=== PATIENT | female | born 1945 | race Caucasian/White ===

== ENCOUNTER → 2024-03-17 | Outpatient (CLI) | payer OTHER, SELFPAY ==
--- NOTE | 2024-03-17 15:22 | XR_ITS ---
Examination: PA lateral chest 2 views TECHNIQUE: Upright PA lateral chest 2 views Exam date and time: March 17, 2024 1532 hours Comparison January 23, 2023 INDICATIONS: Coughing beginning 6 months ago. FINDINGS: Mild prominence left ventricle Linear scarring in the right middle lobe No interval pneumonia or pulmonary edema Right shoulder arthroplasty IMPRESSION: No interval pneumonia or pulmonary edema
[2024-03-17 16:16] LABS: Basophils % (Auto) 0 % (0-2.5); Eosinophils # (Auto) 0.1 Thou/mm3 (0.0-0.5); Eosinophils % (Auto) 1 % (0-10); Hematocrit 36.8 % (36.0-46.0); Hemoglobin 11.6 g/dL (12.0-16.0); Immature Granulocytes % (Auto) 0 % (0-0); Immature Granulocytes Auto 0.02 Thou/mm3 (0.00-0.00); Lymphocytes # (Auto) 2.2 Thou/mm3 (1.0-4.8); Lymphocytes % (Auto) 29 % (10-50); Mean Corpuscular HGB Conc 31.5 g/dl (31.0-37.0); Mean Corpuscular Hemoglobin 30.5 pg (25.0-35.0); Mean Corpuscular Volume 97 fL (80-100); Monocytes # (Auto) 0.4 Thou/mm3 (0.0-0.8); Monocytes % (Auto) 5 % (0-12); Neutrophils # (Auto) 4.8 Thou/mm3 (1.8-7.7); Neutrophils % (Auto) 64 % (37-80); Nucleated Red Blood Cell % 0 /100 WBC (0); Platelet Count 298 Thou/mm3 (140-440); RDW Standard Deviation 49.3 fL (36.4-46.3); White Blood Count 7.5 Thou/mm3 (3.6-11.0)
[2024-03-17 16:24] LABS: Glucose Estimated Average 114 mg/dL (80-131); Hemoglobin A1C 5.6 % Hgb (4.8-6.0)
[2024-03-17 16:50] LABS: Alanine Aminotransferase 16 U/L (10-49); Albumin, Serum 4.1 gm/dL (3.4-4.8); Albumin/Globulin Ratio 1.9 (1.2-2.2); Alkaline Phosphatase 105 U/L (46-116); Anion Gap 8 (7-16); Aspartate Amino Transferase 18 U/L (0-34); BUN/Creatinine Ratio 24 Ratio (12-20); Bilirubin,Total 0.2 mg/dL (0.3-1.2); Blood Urea Nitrogen 22 mg/dL (9-23); Calcium 8.7 mg/dL (8.3-10.6); Calcium (Corrected) 8.7 mg/dL (8.5-10.1); Carbon Dioxide 26.4 mMol/L (20.0-31.0); Cardiac Risk Estimate 3.2 RATIO (3.7-5.6); Chloride 106 mMol/L (98-107); Cholesterol 174 mg/dL (132-200); Creatinine (Component) 0.9 mg/dL (0.6-1.3); Globulin 2.2 gm/dL (2.3-3.5); Glucose 91 mg/dL (74-106); HDL Cholesterol 55 mg/dL (40-60); LDL Cholesterol,Calculated 97 mg/dL (0-130); Osmolality,Calculated 282 (275-295); Potassium 5.2 mMol/L (3.4-5.1); Sodium 140 mMol/L (136-145); Total Protein 6.3 gm/dL (5.7-8.2); Triglycerides 110 mg/dL (30-150); eGFR > 60 See Note
== END | disposition home or self-care (01) ==
LOC: CDIM 15:19 → COPL 15:38
PROVIDERS: Referring Provider Student in an Organized Health Care Education/Training Program; Visit Provider Radiology Diagnostic Radiology
DX: R05.9 Cough, unspecified (principal); I10 Essential (primary) hypertension; E78.5 Hyperlipidemia, unspecified
CPT/HCPCS: 36415; 71046; 80053; 80061; 83036; 85025

== ENCOUNTER → 2024-05-24 | Outpatient (CLI) | payer OTHER, SELFPAY ==
[2024-05-24 13:24] LABS: Potassium 4.8 mMol/L (3.4-5.1)
== END | disposition home or self-care (01) ==
PROVIDERS: PCP Family Medicine; Referring Provider Internal Medicine; Visit Provider Internal Medicine
DX: I10 Essential (primary) hypertension (principal)
CPT/HCPCS: 36415; 84132

== ENCOUNTER 2024-09-20 20:40 | Observation (INO) | payer OTHER, SELFPAY ==
[2024-09-20 20:43] VITALS: BMI 21.6
[2024-09-20 20:44] VITALS: BP 117/57; PULSE 51; RESP 19; TEMP 37; O2SAT 95
--- NOTE | 2024-09-20 20:49 | PD.EDNEURO ---
Neuro Symptoms Deficit-RME/HPI General Chief Complaint: General Adult/Misc Complain Stated Complaint: WEAKNESS FORGETFULL Time Seen by Provider: 09/20/24 20:53 Arrival date/time: 09/20/24 20:40 RME / HPI RME / HPI Narrative: This section includes all my notes and documentations, including HPI, PE, and ED course. Albaro Chin MD HPI: 79yo female with a history of CVA, HTN here with possible stroke. reports unusual observation starting 10 hours ago. He reports possible confusion and some speech impairment. She didn't know where she was and didn't recognize family members. Possible slurred speech, he reports very slow speech. Uncertain about aphasia. No obvious right sided weakness or left-sided weakness. No obvious ataxia. No other complaints. ROS: Unable to obtain from the patient due to current clinical condition. Physical Exam: General: Alert and oriented X 2. Eyes: Conjunctivae and lids clear. EOMI. PERRL. ENT: No nasal congestion. Neck: Supple. No carotid bruit. No JVD. Heart: RRR. Lungs: No respiratory distress. Good air movement. No rhonchi, wheezing, rales. Abdomen: Soft and nontender. Legs: No clubbing, cyanosis, edema. Skin: Warm and dry. Neuro: Alert and oriented X 2. Cranial Nerves II-XII grossly intact. No peripheral motor deficits. Musculoskeletal: All major joints and bones are not tender with no limited ROM. I reviewed all diagnostic test results. My interpretation of the EKG is sinus rhythm with no acute ST?T changes. My interpretation of the chest x-ray is NAD. My review of the CT head report is NAD. My review of the CTA head neck report is: NAD. Blood test unremarkable. UA showed positive leukocyte Estrace, 15 RBC, 34 WBC, and 3+ bacteria. UDS positive for marijuana. At this point, diagnoses include stroke-like symptoms and UTI. Treatment here included IV fluid, Atorvastatin, ASA, and Rocephin. I discussed the case with our teleneurologist. About the presentation and exam and diagnostics and treatments here. Recommended admission for further workup. I discussed the case with our hospitalist. About the presentation and exam and diagnostics and treatments here. And need of further care in the hospital. Will accept the patient. Albaro Chin MD Related Data Home Medications ?Medication ?Instructions ?Recorded ?Confirmed furosemide 20 mg tablet 20 mg PO QDAY 10/09/18 05/23/21 fluoxetine 40 mg capsule 40 mg PO QDAY 05/23/21 05/23/21 lisinopril 40 mg tablet 40 mg PO QDAY 05/23/21 05/23/21 metoprolol succinate 25 mg 25 mg PO QDAY 05/23/21 05/23/21 tablet,extended release 24 hr Allergies Allergy/AdvReac Type Severity Reaction Status Date / Time succinylcholine (From Allergy Severe STOPPED Verified 09/20/24 20:51 Anectine) BREATHING Review of Systems Review of Systems Systems Reviewed: All systems reviewed, normal except as documented Past Medical History Past Medical History NEUROLOGIC: Positive Cerebrovascular Accident (2001); Negative Neurological Disorders or Seizures CARDIAC: Positive Cardiac Disorders and Hypertension; Negative Congestive Heart Failure RESPIRATORY: Negative Chronic Obstructive Pulmonary Disease (COPD) GASTROINTESTINAL: Negative Gastrointestinal Disorders GENITOURINARY: Negative Genitourinary Disorders or Renal Disease REPRODUCTIVE: Negative Pelvic Inflammatory Disease MUSCULOSKELETAL: Positive Musculoskeletal Disorders, Arthritis (HANDS) and Carpal Tunnel Syndrome (bilateral) ENT: Positive Cataracts (BOTH EYES); Negative Glaucoma ENDOCRINE: Negative Endocrine Disorders, Diabetes Mellitus Type 1 or Diabetes Mellitus Type 2 HEMATOLOGIC: Negative Blood Disorders PSYCHO/SOCIAL: 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 Course Course Course Narrative: 2048: Stroke alert initiated. Quality Measures Suspected type of Stroke: Unknown at this time Tenecteplase given: Reason(s) TPA not given: Outside the time window not given stroke Orders Category Date Time Status Bedside Blood Glucose NOW Care 09/20/24 20:53 Active Bedside COVID-19 Antigen Test NOW Care 09/20/24 20:55 Active Bedside Influenza A&B Antigen Test NOW Care 09/20/24 20:55 Completed COVID-19 Screening Questionnaire NOW Care 09/20/24 23:14 Active Home Care Administrator NOW Care 09/20/24 20:53 Active Continuous Pulse Oximetry NOW Care 09/20/24 20:53 Completed Decision to Admit X1 Care 09/20/24 23:14 Active EKG (ED ONLY) *Do not use* NOW Care 09/20/24 20:53 Completed Insert IV NOW Care 09/20/24 20:53 Active NIH Stroke Scale now Care 09/20/24 20:53 Active NPO NOW Care 09/20/24 20:53 Active Nurse Swallow Screen x1 Care 09/20/24 20:53 Active Straight [In and Out Catheter] X1 Care 09/20/24 20:55 Active Consult to Neurology / Tele-Neurology Routine Cons 09/20/24 20:[address] angio stroke protocol Stat Exams 09/20/24 20:[address] stroke protocol Stat Exams 09/20/24 20:53 Completed EKG (ED Only) Stat Exams 09/20/24 20:53 Draft XR chest 1V portable Stat Exams 09/20/24 20:53 Completed Alcohol, Blood Medical Stat Lab 09/20/24 21:44 Completed B-Type Natriuretic Peptide Stat Lab 09/20/24 21:44 Completed Bilirubin,Direct Stat Lab 09/20/24 21:44 Completed Blood Culture (Lab) Stat Lab 09/20/24 21:55 Received CBC Stat Lab 09/20/24 21:44 Completed CRP [C-Reactive Protein] Stat Lab 09/20/24 21:44 Completed Comprehensive Metabolic Panel Stat Lab 09/20/24 21:44 Completed Drug Screen,Urine Stat Lab 09/20/24 22:19 Completed ESR [Sed Rate (ESR)] Stat Lab 09/20/24 21:44 Completed Free T4 (Free Thyroxine) Stat Lab 09/20/24 21:44 Completed Lactate (Lactic Acid) Stat Lab 09/20/24 21:44 Completed Magnesium Stat Lab 09/20/24 21:44 Completed Partial Thromboplastin Time Stat Lab 09/20/24 21:44 Completed Procalcitonin Stat Lab 09/20/24 21:44 Completed Prothrombin Time with INR Stat Lab 09/20/24 21:44 Completed TSH [Thyroid Stimulating Hormone] Stat Lab 09/20/24 21:44 Completed Troponin I Stat Lab 09/20/24 21:44 Completed Urinalysis Stat Lab 09/20/24 22:19 Completed Urine Culture Stat Lab 09/20/24 20:53 Received Aspirin [Ecotrin] Med 09/21/24 09:00 Active 81 mg PO QDAY Aspirin [Ecotrin] Med 09/20/24 22:39 Discontinued 81 mg PO X1 ONE Atorvastatin Calcium [Lipitor] Med 09/21/24 21:00 Active 80 mg PO HS Atorvastatin Calcium [Lipitor] Med 09/20/24 22:45 Discontinued 80 mg PO X1 ONE Sodium Chloride 0.9% 1000 ml [Ns] 1,000 ml Med 09/20/24 21:00 Active IV Q10H EKG (RT) Stat RT 09/20/24 22:39 Ordered Oxygen Delivery NOW RT 09/20/24 20:53 Active Vital Signs Vital signs: Vital Signs Temperature 98.6 F 09/20/24 20:44 Pulse Rate 51 L 09/20/24 20:44 Respiratory Rate 19 09/20/24 20:44 Blood Pressure 117/57 L 09/20/24 20:44 Pulse Oximetry (%) 95 09/20/24 20:44 Oxygen Delivery Method Room Air 09/20/24 20:44 Neuro Symptoms / Deficit MDM Narrative MDM Narrative:: 79yo female with a history of CVA, HTN here with possible stroke. reports unusual observation starting 10 hours ago. He reports possible confusion and some speech impairment. She didn't know where she was and didn't recognize family members. Possible slurred speech, he reports very slow speech. Uncertain about aphasia. No obvious right sided weakness or left-sided weakness. No obvious ataxia. No other complaints. Patient data External records reviewed:: [facility] previous records (Per chart review, patient has no previous ED visits or admissions to this facility.) Clinical information provided by:: patient and spouse Social determinants that could affect healthcare access:: none Patient has the following chronic illnesses:: CVA, HTN How is presenting disease/condition affected by chronic disease/condition?: uneffected by Evaluation data The following diagnostics were reviewed and interpreted by me:: lab results, radiology exam(s) and EKG tracing(s) (My interpretation of the EKG is: Sinus rhythm versus atrial fibrillation (47 bpm) with nonspecific ST-T changes. Albaro Chin MD) Lab and/or radiology exams considered but not ordered:: none Interpretation Summary: I reviewed all diagnostic test results. My interpretation of the EKG is sinus rhythm with no acute ST?T changes. My interpretation of the chest x-ray is NAD. My review of the CT head report is NAD. My review of the CTA head neck report is: NAD. Blood test unremarkable. UA showed positive leukocyte Estrace, 15 RBC, 34 WBC, and 3+ bacteria. UDS positive for marijuana. Medications / Prescriptions Medications or Prescriptions considered but not ordered:: none Medication administrations:: Medication Administration History Acetaminophen (Acetaminophen 325 Mg Tablet) 650 mg PO Q6H PRN PRN Reason: Fever >100.4 or pain 1-3 Stop: 10/20/24 23:31 Hydrocodone Bitart/Acetaminophen (Hydrocodone/Apap 5/325 Tablet) 1 tab PO Q4HR PRN PRN Reason: PAIN SCALE 4-10(Mod-Sev Stop: 09/25/24 23:31 Aspirin (Aspirin Ec 81 Mg Tabec) 81 mg PO QDAY ONELIA Stop: 10/21/24 08:59 Atorvastatin Calcium (Atorvastatin Calcium 20 Mg Tablet) 80 mg PO HS ONELIA Stop: 10/21/24 20:59 Docusate Sodium (Docusate Sod 100 Mg Capsule) 100 mg PO QDAY PRN; Protocol PRN Reason: CONSTIPATION Stop: 10/20/24 23:31 Heparin Sodium (Porcine) (Heparin Sod Inj 5000 Unit/Ml Vial) 5,000 unit SC Q12HR ONELIA Stop: 10/05/24 08:59 Sodium Chloride (Ns) 1,000 mls @ 100 mls/hr IV Q10H ONELIA Stop: 10/20/24 20:59 Last Admin: 09/20/24 21:44 Dose: 100 mls/hr Documented By: TACOS Ceftriaxone Sodium/Dextrose (Rocephin/D5w 1gm Iv Premix) 1 gm in 50 mls @ 100 mls/hr IV QDAY ONELIA Stop: 09/27/24 23:40 Last Infusion: 09/21/24 00:30 Dose: Infused Documented By: Admin: 09/20/24 23:59 Dose: 100 mls/hr Documented By: RONALD Ondansetron HCl (Ondansetron Inj 2 Mg/Ml Inj 2 Ml) 4 mg IVP Q6H PRN; Protocol PRN Reason: NAUSEA OR VOMITING Stop: 10/20/24 23:31 Sennosides (Senna Tablet) 1 tab PO QDAY PRN; Protocol PRN Reason: constipation Stop: 10/20/24 23:31 Discontinued Medications Aspirin (Aspirin Ec 81 Mg Tabec) 81 mg PO X1 ONE Stop: 09/20/24 22:40 Last Admin: 09/20/24 23:10 Dose: 81 mg Documented By: CG Atorvastatin Calcium (Atorvastatin Calcium 20 Mg Tablet) 80 mg PO X1 ONE Stop: 09/20/24 22:46 Last Admin: 09/20/24 23:10 Dose: 80 mg Documented By: CG Levothyroxine Sodium (Levothyroxine Sodium 25 Mcg Tablet) 12.5 mcg PO ACBR ONELIA Stop: 10/21/24 05:59 Potassium Chloride (Potassium Chloride 20 Meq Tabcr) 20 meq PO X1 ONE Stop: 09/21/24 00:43 Last Admin: 09/21/24 01:57 Dose: 20 meq Documented By: RONALD Treatment here included IV fluid, Atorvastatin, ASA, and Rocephin. Consultations Consultation(s) initiated? (list below): Yes Consultation #1 (Physician, Specialty, Details): I discussed the case with our teleneurologist. About the presentation and exam and diagnostics and treatments here. Recommended admission for further workup. Consultation #2 (Physician, Specialty, Details): I discussed the case with our hospitalist. About the presentation and exam and diagnostics and treatments here. And need of further care in the hospital. Will accept the patient. Diagnosis Neuro Differential Diagnosis: subarachnoid hemorrhage, cerebrovascular accident and transient cerebral ischemia Most likely diagnosis given after review of the tests above:: Stroke-like symptoms and UTI Admission Indicated Admission indicated?: indicated Explain why admission is indicated or not indicated:: Stroke-like symptoms Admission Request Was there a request for admission?: Yes Admission Attestation Admission request attestation: Discussed case with Hospitalist service regarding admission. Discussed patients ED course, exam findings, labs, and radiology results. The Hospitalist [agrees] to accept the patient for admission. Disposition Plan Disposition Plan: Admit Critical Care Time Critical Care Time Critical Care Time: Yes Total Critical Care Time (min.): 36 Attestation: Due to a high probability of clinically significant, life threatening deterioration, the patient required my highest level of preparedness to intervene emergently and I personally spent this critical care time directly and personally managing the patient. This critical care time included obtaining a history; examining the patient; ordering and review of studies; arranging urgent treatment with development of a management plan; evaluation of patient's response to treatment; frequent reassessment; and discussions with family and other providers. It was exclusive of separately billable procedures and treating other patients and teaching time. Albaro Chin MD Discharge Plan Plan Patient Disposition: Admit Acute Care w/in Hospital Problem List Clinical Impression: Stroke-like symptoms
--- NOTE | 2024-09-20 20:53 | XR_ITS ---
Examination: AP chest single view TECHNIQUE: AP portable upright chest single view Date and time: July 21, [id number] hours Comparison March 17, 2024 INDICATIONS: Stroke alert today with chest pain FINDINGS: Mild prominence left ventricle. No pneumonia or pulmonary edema. Prominent osteopenia. Reverse right shoulder arthroplasty. IMPRESSION: No pneumonia or pulmonary edema
--- NOTE | 2024-09-20 20:53 | XR_ITS ---
Examination: CT brain head without contrast. 2-D sagittal coronal reconstructions Date and time of exam:September 20, 2024, 2058 hours INDICATIONS: Stroke alert, onset focal neurologic deficit, altered mental status, history CVA with old cerebellar infarcts on brain MRI July 31, 2021 CTDI: vol (mGy):46.6 DLP: (mGycm):912 Technique: Multiple CT axial sections of the brain have been obtained, 5 mm slice thickness. Contrast has not been administered. 2-D sagittal, coronal reconstructions have been obtained Low dose protocols were performed. One or more of the following dose reduction techniques were used; automated exposure control, adjustment of the mA and/or KV according to patient size, use of iterative reconstruction technique. Findings: No significant ventricular enlargement. Intra-axial or extra-axial hemorrhage density is not seen. No mass effect or midline shift Basal cisterns are not remarkable. Fourth ventricle is midline. Cranial vault intact. Large old left cerebellar infarct Impression: Negative for acute hemorrhage, mass effect or midline shift
--- NOTE | 2024-09-20 20:53 | XR_ITS ---
Examination: CTA carotids with intravenous contrast CTA brain, head with intravenous contrast. 2-D sagittal, coronal reconstructions. 3-D reconstructions. Exam date and time: September 20, 2024, 2106 hours INDICATIONS: Stroke alert, onset focal neurologic deficit today CTDI: vol (mGy) 11.5 DLP: (mGycm) 41.8 Technique: Multiple CTA axial brain, head carotid images post intravenous contrast injection 100 cc, [id number]. 2-D sagittal, coronal reconstructions. 3-D reconstructions, 3-D post processing including vascular maximum intensity projection images. Low dose protocols were performed. One or more of the following dose reduction techniques were used; automated exposure control, adjustment of the mA and/or KV according to patient size, use of iterative reconstruction technique. Findings: Small bilateral subcentimeter thyroid nodules No significant common carotid carotid bifurcation or internal carotid artery stenoses Dominant right vertebral artery No appreciable filling of the proximal left vertebral artery which is atretic in its mid and distal portion Basilar artery is intact although diffuse 50% stenosis in its midportion 80% plus stenosis P1 segment right posterior cerebral artery and 70% stenosis P2 segment right posterior cerebral artery M1 segments middle cerebral arteries and trifurcation vessels intact as well as anterior cerebral arteries IMPRESSION: No appreciable filling of the proximal left vertebral artery, recommend carotid vertebral Doppler sonography to assess for retrograde flow in the left vertebral artery No significant carotid stenoses 50% diffuse narrowing in the basilar artery. 80% plus stenosis P1 segment right posterior cerebral artery, 70% stenosis P2 segment right posterior cerebral artery No cerebral large vessel arterial occlusions
--- NOTE | 2024-09-20 20:53 | EKG_ITS ---
[facility] Test Date: 2024-09-20 Pat Name: JULISA WILLS Department: Room: - Gender: Female Sheep Shearer: : 1945 Requested By: Albaro Thakkar Order Number: [id number] Reading MD: Albaro Thakkar Measurements Intervals [place] Rate: 47 P: 67 CT: 212 QRS: 42 QRSD: 91 T: 47 QT: 481 QTc: 430 Interpretive Statements SINUS BRADYCARDIA WITH FIRST DEGREE AV BLOCK WITH OCCASIONAL SUPRAVENTRICULAR PREMATURE COMPLEXES POSSIBLE ANTERIOR MYOCARDIAL INFARCTION , PROBABLY OLD [30 ms Q WAVE IN V3/V4, OR R < 0.2 mV IN V4] No previous ECG available for comparison /[id number]/[id number]
[2024-09-20 21:24] VITALS: BP 108/41; PULSE 43; PULSE 46; RESP 15; RESP 93; TEMP 36.1; O2SAT 97
[2024-09-20 21:25] VITALS: PULSE 46; RESP 19; RESP 97
[2024-09-20] MEDS: SODIUM CHLORIDE 0.9% 1000 ML 1,000 ML 100 ML IV (21:44)
--- NOTE | 2024-09-20 21:47 | ESCONSULT_ITS ---
Tele Neuro Consultation Consultation Date 09/20/24 Most Recent Vital Signs Last Vital Signs Temp 97.0 F 09/20/24 21:24 Pulse 46 L 09/20/24 21:25 Resp 19 09/20/24 21:25 BP 108/41 L 09/20/24 21:24 Pulse Ox 97 09/20/24 21:24 O2 Del Method Room Air 09/20/24 20:44 O2 Flow Rate 2 09/20/24 21:24 Consultation Narrative [facility] Tele[facility]urology Consult Services Patient Name:???Cindi Hess Date of :???1945 Identification Number:??? Date of Service:???09/20/2024 20:51:07 Diagnosis:?R51.83 - Other fatigue Impression: ?79 year old with fatigue, confusion, forgetfulness, slowness of speech/movement progressively worsening since around 1pm this afternoon. Would pursue broad workup. Our recommendations are outlined below. Recommendations: ? Stroke/Telemetry Floor ? Neuro Checks (Q4) ? Bedside Swallow Eval ? DVT Prophylaxis ? IV Fluids, Normal Saline ? Head of Bed 30 Degrees ? Euglycemia and Avoid Hyperthermia (PRN Acetaminophen) ? Initiate or continue Aspirin 81 MG daily ? Antihypertensives PRN if Blood pressure is greater than 220/120 or there is a concern for End organ damage/contraindications for permissive HTN. If blood pressure is greater than 220/120 give labetalol PO or IV or Vasotec IV with a goal of 15% reduction in BP during the first 24 hours. ?MRI brain without contrast ?Routine EEG ?TTE/ECHO ?A1C, LDL, B12, TSH with T3/4, Ammonia, Tox screen, Mag, ESR, CK ?High dose statin ?Cardiac Monitoring ?Infectious workup per primary team ?Inpatient neurology FU recommended post MRI brain/EEG for further analysis Sign Out: ? Discussed with Emergency Department Provider Advanced Imaging: CTA Head and Neck Completed. LVO:No Patient is not a candidate for ERLINDA Metrics: Last Known Well: 09/20/2024 13:00:00 Dispatch Time: 09/20/2024 20:51:07 Arrival Time: 09/20/2024 20:40:00 Initial Response Time: 09/20/2024 20:52:29Symptoms: Talking and moving slower than normal since early afternoon. Initial patient interaction: 09/20/2024 21:10:19 NIHSS Assessment Completed: 09/20/2024 21:15:14Patient is not a candidate for Thrombolytic. Thrombolytic Medical Decision: 09/20/2024 21:15:15Patient was not deemed candidate for Thrombolytic because of following reasons: LKW outside 4.[address] Head: I personally reviewed all the CT images that were available to me and it showed: no evidence of bleed Primary Provider Notified of Diagnostic Impression and Management Plan on: 09/20/2024 21:24:08 History of Present Illness:Patient is a 79 year old Female. Patient was brought by private transportation with symptoms of Talking and movi ng slower than normal since early afternoon. This is a 79 year old who presents with mental status changes. Story is taken from as patient states that currently she does not feel any different than she feels at normal baseline. states that he started to realize that there was something different about patient between 12pm and 1pm this afternoon. Patient appeared to be lethargic, talking slower, appeared forgetful, and was moving slower than normal. states that he believed that patient either forgot to take her Prozac, or that patient overmedicated on pain medication. However, as time passed in the afternoon and into the evening, the problem never resolved, in fact it started to appear that it was worsening. For this reason patient presents. On exam patient is awake and alert and fully oriented. Her concentration is normal. Her 1 minute recall is abnormal, she appears to have trouble with memory at this time. She has no aphasia or dysarthria. She has no drift or numbness of an extremity. NIH was 0. On asking how patient was different from normal, states that patient is talking very slow . Patient states I feel normal but states that perhaps she is talking a little bit slower than usual. CT head showed no evidence of bleed. Past Medical History: ?Hypertension ?Stroke ?There is no history of Diabetes Mellitus ?There is no history of Atrial Fibrillation ?There is no history of Seizures Medications: No Anticoagulant use? No Antiplatelet use Reviewed EMR for current medications Allergies:? Reviewed Social History: Smoking: No Alcohol Use: No Drug Use: No Family History: There is no family history of premature cerebrovascular disease pertinent to this consultation ROS : 14 Points Review of Systems was performed and was negative except mentioned in HPI. Past Surgical History: There Is No Surgical History Contributory To Today?s Visit Examination: BP(117/57),?Pulse(51),?Blood Glucose(156) 1A: Level of Consciousness - Alert; keenly responsive?+ 0 1B: Ask Month and Age - Both Questions Right?+ 0 1C: Blink Eyes & Squeeze Hands - Performs Both Tasks?+ 0 2: Test Horizontal Extraocular Movements - Normal?+ 0 3: Test Visual Swan - No Visual Loss?+ 0 4: Test Facial Palsy (Use Grimace if Obtunded) - Normal symmetry?+ 0 5A: Test Left Arm Motor Drift - No Drift for 10 Seconds?+ 0 5B: Test Right Arm Motor Drift - No Drift for 10 Seconds?+ 0 6A: Test Left Leg Motor Drift - No Drift for 5 Seconds?+ 0 6B: Test Right Leg Motor Drift - No Drift for 5 Seconds?+ 0 7: Test Limb Ataxia (FNF/Heel-Yee) - No Ataxia?+ 0 8: Test Sensation - Normal; No sensory loss?+ 0 9: Test Language/Aphasia - Normal; No aphasia?+ 0 10: Test Dysarthria - Normal?+ 0 11: Test Extinction/Inattention - No abnormality?+ 0 NIHSS Score:?0 Pre-Morbid Modified Severance Scale:0 Points = No symptoms at all Spoke with :?Primary ED provider This consult was conducted in real time using interactive audio and video technology. Patient was informed of the technology being used for this visit and agreed to proceed. Patient located in hospital and provider located at home/office setting. Patient is being evaluated for possible acute neurologic impairment and high probability of imminent or life-threatening deterioration. I spent total of 60 minutes providing care to this patient, including time for face to face visit via telemedicine, review of medical records, imaging studies and discussion of findings with providers, the patient and/or family. Dr Ivan Zambrano [facility] For Inpatient follow-up with [facility] physician please call [facility] at . As we are not an outpatient service for any post hospital discharge needs please contact the hospital for assistance. If you have any questions for the [facility] physicians or need to reconsult for clinical or diagnostic changes please contact us via [facility] at . Signature :Radha Zambrano
[2024-09-20 22:05] LABS: Basophils # (Auto) 0.0 Thou/mm3 (0.0-0.2); Basophils % (Auto) 0 % (0-2.5); Eosinophils # (Auto) 0.1 Thou/mm3 (0.0-0.5); Eosinophils % (Auto) 1 % (0-10); Hematocrit 30.4 % (36.0-46.0); Hemoglobin 9.8 g/dL (12.0-16.0); Immature Granulocytes Auto 0.02 Thou/mm3 (0.00-0.00); Lymphocytes # (Auto) 2.0 Thou/mm3 (1.0-4.8); Lymphocytes % (Auto) 33 % (10-50); Mean Corpuscular HGB Conc 32.2 g/dl (31.0-37.0); Mean Corpuscular Hemoglobin 30.4 pg (25.0-35.0); Mean Corpuscular Volume 94 fL (80-100); Monocytes # (Auto) 0.5 Thou/mm3 (0.0-0.8); Monocytes % (Auto) 8 % (0-12); Neutrophils # (Auto) 3.5 Thou/mm3 (1.8-7.7); Neutrophils % (Auto) 58 % (37-80); Nucleated Red Blood Cell # 0.00 Thou/mm3 (0.00-0.00); Nucleated Red Blood Cell % 0 /100 WBC (0); Platelet Count 232 Thou/mm3 (140-440); RDW Standard Deviation 45.3 fL (36.4-46.3); Red Blood Count 3.22 Miln/mm3 (4.00-5.20); White Blood Count 6.1 Thou/mm3 (3.6-11.0)
[2024-09-20 22:16] LABS: B-Type Natriuretic Peptide 108 pg/mL (0-100)
[2024-09-20 22:20] LABS: INR 1.0 (0.9-1.3); Partial Thromboplastin Time 29.5 Seconds (22.0-36.0); Prothrombin Time 11.1 Seconds (9.0-12.2)
[2024-09-20 22:26] LABS: Sed Rate (ESR) 14 mm/hr (0-30)
[2024-09-20 22:31] LABS: Collection Type, Urine Clean Catch
[2024-09-20 22:40] LABS: Lactate (Lactic Acid) 1.0 mMol/L (0.4-2.0)
[2024-09-20 22:47] LABS: Amphetamine/Methamp Scrn,U Negative (Negative); Bacteria,Urine 3+; Barbiturate Screen,Urine Negative (Negative); Benzodiazepines Screen,Urine Negative (Negative); Benzoylecgonine Screen, Ur Negative (Negative); Bilirubin,Urine Negative (Negative); Blood,Urine Trace (Negative); Clarity,Urine Turbid (Clear/Hazy); Color,Urine Yellow (Lt Yel-Yel); Fentanyl Screen,Urine Negative (Negative); Glucose, Urine Negative (Negative); Hyaline Casts,Urine < 1 /hpf (0-1); Ketones,Urine Negative (Negative); Leukocyte Esterase,Urine Positive (Negative); Nitrite,Urine Positive (Negative); Opiate Screen,Urine Negative (Negative); PH,Urine 6.5 (5.0-7.0); Protein,Urine Negative (Neg - Trace); RBC,Urine 15 /hpf (0-3); Specific Gravity,Urine 1.040 (1.001-1.035); Squamous Epithelial Cell,Urine 12 /hpf (0-5); THC Screen,Urine Positive (Negative); Urobilinogen,Urine Negative mg/dL (0.0-1.0); WBC,Urine 34 /hpf (0-5)
[2024-09-20 22:47] LABS: Anion Gap 8 (7-16); BUN/Creatinine Ratio 17 Ratio (12-20); Blood Urea Nitrogen 24 mg/dL (9-23); Carbon Dioxide 25.6 mMol/L (20.0-31.0); Chloride 105 mMol/L (98-107); Creatinine (Component) 1.4 mg/dL (0.6-1.3); Potassium 3.8 mMol/L (3.4-5.1); Sodium 139 mMol/L (136-145)
[2024-09-20 22:48] LABS: Alanine Aminotransferase 8 U/L (10-49); Albumin, Serum 3.5 gm/dL (3.4-4.8); Albumin/Globulin Ratio 1.7 (1.2-2.2); Alcohol, Blood Medical < 3.0 mg/dL (0-10.0); Alkaline Phosphatase 83 U/L (46-116); Aspartate Amino Transferase 16 U/L (0-34); Bilirubin,Direct < 0.1 mg/dL (0.0-0.3); Bilirubin,Total 0.3 mg/dL (0.3-1.2); C-Reactive Protein < 0.5 mg/dL (0.0-0.9); Calcium 8.6 mg/dL (8.3-10.6); Calcium (Corrected) 9.0 mg/dL (8.5-10.1); Estimated Creatinine Clearance 28.1 mL/min (>60); Free T4 (Free Thyroxine) 0.81 ng/dL (0.89-1.76); Globulin 2.1 gm/dL (2.3-3.5); Glucose 105 mg/dL (74-106); Magnesium 2.0 mg/dL (1.6-2.6); Osmolality,Calculated 281 (275-295); Procalcitonin < 0.04 ng/ml (0.0-0.49); Thyroid Stimulating Hormone 0.60 uIU/mL (0.55-4.78); Total Protein 5.6 gm/dL (5.7-8.2); Troponin I < 0.020 ng/mL (0.0-0.045); eGFR 38 See Note
[2024-09-20] MEDS: ASPIRIN EC 81 MG TABEC PO (23:10)
[2024-09-20] MEDS: ATORVASTATIN CALCIUM 20 MG TABLET 80 MG PO (23:10)
--- NOTE | 2024-09-20 23:35 | PD.RESHP ---
Documentation for date of: 09/20/24 HPI History of Present Illness Chief complaint: Confusion, slowed speech History of present illness: 79 y/o F with PMHx significant for CVA without residual deficits, HTN, arthritis presented to ED from home with chief complaint confusion and slurred speech. Per family at bedside, patient had an episode where she did nopt seem to recognize her daughter. Patient has also been forgetful about simple things, and had slowed speech with delay in responses. Symptoms had improved by time of exam. Patient denied fatigue, fever, chills, chest pain, SOB, nausea, vomiting, dysuria, constipation. Patient noted to be bradycardic, hemodynamically stable and asymptomatic, per chart review has had bradycardia for several years. ED COURSE: Labs significant for: Hemoglobin 9.8, BUN 24, creatinine 1.4, EGFR 38. Urinalysis showing positive nitrates, positive LE, 15 RBCs, 34 WBCs, 12 epithelial cells, 3+ bacteria. U tox positive for marijuana. Imaging significant for: Chest x-ray negative. CT head negative. Head and neck CTA showing no filling of left vertebral artery, 50% narrowing basilar artery, 80% stenosis right posterior cerebral artery. No LVO. PMH: CVA, hypertension, arthritis. PSH: Bilateral knee replacement, right shoulder replacement. SH: Denies alcohol or tobacco use. Endorses nightly THC use. Allergies:?Succinylcholine Medications: Pravastatin, valsartan, Prozac Review of Systems Review of Systems Systems Reviewed: All systems reviewed, normal except as documented Past Medical History Past Medical History Comments PMH COMMENT: PMH: CVA, hypertension, arthritis. PSH: Bilateral knee replacement, right shoulder replacement. SH: Denies alcohol or tobacco use. Endorses nightly THC use. Allergies:?Succinylcholine Medications: Pravastatin, valsartan, Prozac Exam Vital Signs Temp Pulse Resp BP Pulse Ox O2 Del Method O2 Flow Rate 97.0 F 46 L 19 108/41 L 97 Room Air 2 09/20/24 21:24 09/20/24 21:25 09/20/24 21:25 09/20/24 21:24 09/20/24 21:24 09/20/24 20:44 09/20/24 21:24 Narrative Exam PE: Gen: Well-developed and well-nourished. HEENT: NCAT, PERRLA, EOMI, anicteric conjunctivae. Dry mucous membranes. CVS: normal S1 and S2. No M/R/G. Sinus bradycardia. Resp: CTA B/L. No rhonchi, rales, crackles or wheezing. Abd: soft, non-tender, non-distended. BS+ in all 4 quadrants. MSK: Good ROM in BUE & BLE. No edema or rash. Neuro: CN II-XII grossly intact. Strength 5/5 in BUE & BLE. Alert and oriented x3. Forgetfulness. Psych: appropriate mood and affect. Results: Labs 09/21/24 04:20 09/21/24 04:20 Labs: Short CBC 09/20/24 Range/Units 21:44 WBC 6.1 (3.6-11.0) Thou/mm3 Hgb 9.8 L (12.0-16.0) g/dL Hct 30.4 L (36.0-46.0) % Plt Count 232 (140-440) Thou/mm3 BMP 09/20/24 21:44 Sodium 139 Potassium 3.8 Chloride 105 Carbon Dioxide 25.6 BUN 24 H Creatinine 1.4 H Glucose 105 Calcium 8.6 Cardiac Enzymes 09/20/24 Range/Units 21:44 Troponin I < 0.020 (0.0-0.045) ng/mL Liver Function 09/20/24 Range/Units 21:44 Total Bilirubin 0.3 (0.3-1.2) mg/dL Direct Bilirubin < 0.1 (0.0-0.3) mg/dL AST 16 (0-34) U/L ALT 8 L (10-49) U/L Alkaline Phosphatase 83 (46-116) U/L Albumin 3.5 (3.4-4.8) gm/dL Urine 09/20/24 Range/Units 22:19 Urine Color Yellow (Lt Yel-Yel) Urine Clarity Turbid A (Clear/Hazy) Urine pH 6.5 (5.0-7.0) Ur Specific [place] 1.040 H (1.001-1.035) Urine Protein Negative (Neg - Trace) Urine Glucose (UA) Negative (Negative) Quality Measures Quality Measures stroke Suspected type of Stroke: Unknown at this time Tenecteplase given: Reason(s) Tenecteplase not given: Outside the time window not given Rehab services: PT evaluation ordered and Speech Language Pathology eval ordered VTE Prophylaxis: pharmaceutical Antithrombotic by day 2:: not indicated (describe) (Out of window) Statin ordered: >75 y/o moderate or high intensity dose Anticoagulation ordered for A-fib or flutter (current or hx): not indicated Advance care planning discussed with:: patient and spouse Medications Home Medications and Allergies Home Medications ?Medication ?Instructions ?Recorded ?Confirmed ?Type furosemide 20 mg tablet 20 mg PO QDAY 10/09/18 05/23/21 History fluoxetine 40 mg capsule 40 mg PO QDAY 05/23/21 05/23/21 History lisinopril 40 mg tablet 40 mg PO QDAY 05/23/21 05/23/21 History metoprolol succinate 25 mg 25 mg PO QDAY 05/23/21 05/23/21 History tablet,extended release 24 hr Allergies Allergy/AdvReac Type Severity Reaction Status Date / Time succinylcholine (From Allergy Severe STOPPED Verified 09/20/24 20:51 Anectine) BREATHING Visit Medications Acetaminophen (Acetaminophen 325 Mg Tablet) 650 mg PO Q6H PRN PRN Reason: Fever >100.4 or pain Stop: 10/20/24 23:31 Hydrocodone Bitart/Acetaminophen (Hydrocodone/Apap 5/325 Tablet) 1 tab PO Q4HR PRN PRN Reason: PAIN SCALE 4-10(Mod-Sev Stop: 09/25/24 23:31 Aspirin (Aspirin Ec 81 Mg Tabec) 81 mg PO QDAY ONELIA Stop: 10/21/24 08:59 Atorvastatin Calcium (Atorvastatin Calcium 20 Mg Tablet) 80 mg PO HS ONELIA Stop: 10/21/24 20:59 Docusate Sodium (Docusate Sod 100 Mg Capsule) 100 mg PO QDAY PRN; Protocol PRN Reason: CONSTIPATION Stop: 10/20/24 23:31 Heparin Sodium (Porcine) (Heparin Sod Inj 5000 Unit/Ml Vial) 5,000 unit SC Q12HR ONELIA Stop: 10/05/24 08:59 Sodium Chloride (Ns) 1,000 mls @ 100 mls/hr IV Q10H ONELIA Stop: 10/20/24 20:59 Last Admin: 09/20/24 21:44 Dose: 100 mls/hr Ceftriaxone Sodium/Dextrose (Rocephin/D5w 1gm Iv Premix) 1 gm in 50 mls @ 100 mls/hr IV QDAY ONELIA Stop: 09/27/24 23:40 Last Admin: 09/20/24 23:59 Dose: 100 mls/hr Ondansetron HCl (Ondansetron Inj 2 Mg/Ml Inj 2 Ml) 4 mg IVP Q6H PRN; Protocol PRN Reason: NAUSEA OR VOMITING Stop: 10/20/24 23:31 Sennosides (Senna Tablet) 1 tab PO QDAY PRN; Protocol PRN Reason: constipation Stop: 10/20/24 23:31 Discontinued Medications Aspirin (Aspirin Ec 81 Mg Tabec) 81 mg PO X1 ONE Stop: 09/20/24 22:40 Last Admin: 09/20/24 23:10 Dose: 81 mg Atorvastatin Calcium (Atorvastatin Calcium 20 Mg Tablet) 80 mg PO X1 ONE Stop: 09/20/24 22:46 Last Admin: 09/20/24 23:10 Dose: 80 mg Assessment & Plan Plan 79 y/o F with PMHx significant for CVA without residual deficits, HTN, arthritis presented to ED from home with chief complaint confusion and slurred speech, admitted for encephalopathy and stroke rule out. #Acute encephalopathy #Stroke rule out Patient presented chief complaint of confusion and slurred speech per family. Patient has history of previous CVA. CT head unremarkable, head and neck CTA showed no filling left vertebral artery, 50% narrowing basilar artery, 80% stenosis right posterior cerebral artery. On exam patient was A&Ox3, however somewhat forgetful, per family bedside this was different from patient's baseline. Teleneuro consulted, recommended admission for further stroke rule out. NIHSS 0. - Aspirin 81 mg p.o. daily - Atorvastatin 80 mg p.o. at bedtime - MRI stroke protocol pending, follow-up - Carotid doppler (in addition to CTA obtained per neuro recs) - PT/ST consulted - Every 4 hours neurochecks - Treat UTI as below - Permissive hypertension #LELA Patient presented with mild LELA, BUN 24, creatinine 1.4, EGFR 38. Baseline creatinine 0.9, baseline EGFR greater than 60. Likely prerenal. - IVF as above - Avoid nephrotoxins - Renally dose meds as needed #Bradycardia, stable, asymptomatic Patient noted to be bradycardic on exam. Hemodynamically stable. Patient denies chest pain, shortness of breath, headache, fatigue, weakness. Denies any knowledge of previous bradycardia diagnosis, however on chart review patient has had bradycardia for several years. EKG showed sinus bradycardia with first-degree AV block. - Telemonitoring - Consider cardio consult - Keep potassium above 4 magnesium above 2 - Possibly in setting of Hypothyroidism #Hypothyroidism Possibly secondary as TSH wnl May be a cause of patient's bradycardia. F/U repeat TSH/fT4 Start patient on low dose Levothyroxine if remains low Consider further labs and imaging as warranted. #UTI Urinalysis indicating UTI, although could be contaminated given presence of epithelial cells. Potentially reason for acute encephalopathy as above. - Urine culture pending, follow-up - Rocephin 1 g IV daily (started 09/20) - IVF: Normal saline at 100 mL/h #HTN Patient history of hypertension. Currently long course of hypertension in the setting of stroke rule out. - Consider resuming home meds when appropriate - Permissive hypertension DVT prophylaxis: Heparin GI prophylaxis: None Diet: Cardiac Lines: Peripheral IV Code status: Full code Plan of care discussed with attending Dr. Juarez Tovar MD PGY-2 Attending Provider Attestation/Addendum Attending Provider Attestation/Addendum After examination of the patient and review of the clinical data I feel that this patient needs admission to the hospital for further treatment/evaluation. I Tracy Pizarro MD, attest that I was physically present for burns portions of evaluation, and examined patient, labs and imagings and plan of care were discussed with IM residents team, and I agree with the findings and plans documented above.
[2024-09-20] MEDS: cefTRIAXone/D5w 1gm IV premix 1 GM/50 ML BAG IV (23:59)
[2024-09-21] VITALS (8 sets, daily range): BP systolic 101–150; BP diastolic 41–73; PULSE 38–451; RESP 15–100; TEMP 36.1–36.9; O2SAT 93–100
--- NOTE | 2024-09-21 | XR_ITS ---
Examinations: MRI Brain without intravenous contrast. MRA brain without intravenous contrast. MRA carotids without intravenous contrast 3-D vascular reconstructions Date and time of exam: September 21, 2024 0638 hours INDICATIONS: Stroke alert yesterday, onset focal neurologic deficit altered mental status slurred speech Technique: Multiple axial and sagittal images of the brain have been obtained MRA brain carotid images without contrast obtained, including 3-D postprocessing, vascular maximum intensity projection images Findings: Sellaturcica is not enlarged. The optic chiasm and infundibular stalk are not remarkable. Prepontine and interpeduncular cisterns are not enlarged. No localized enlargement of the medulla or pao. Fourth ventricle and cerebellar tonsils normal in position. Subacute hemorrhage is not seen. Fourth ventricle is midline. Mass in the cerebellopontine angle region is not evident. 7th and 8th nerve complexes exhibits symmetry. Globes are symmetrical with no retro-orbital mass. Increased white matter signal prominent Diffusion-weighted images demonstrate no focus of restricted diffusion Mass-effect upon the ventricular system is not identified. MRA brain images severely degraded by patient motion Impression: Negative for acute hemorrhage mass effect or midline shift No acute infarct Large old infarct left cerebellar hemisphere. Prominent chronic microvascular white matter change
[2024-09-21 04:57] LABS: Basophils # (Auto) 0.0 Thou/mm3 (0.0-0.2); Basophils % (Auto) 1 % (0-2.5); Eosinophils # (Auto) 0.1 Thou/mm3 (0.0-0.5); Eosinophils % (Auto) 2 % (0-10); Hematocrit 30.8 % (36.0-46.0); Hemoglobin 9.9 g/dL (12.0-16.0); Immature Granulocytes Auto 0.01 Thou/mm3 (0.00-0.00); Lymphocytes # (Auto) 2.0 Thou/mm3 (1.0-4.8); Lymphocytes % (Auto) 37 % (10-50); Mean Corpuscular HGB Conc 32.1 g/dl (31.0-37.0); Mean Corpuscular Hemoglobin 30.7 pg (25.0-35.0); Mean Corpuscular Volume 95 fL (80-100); Monocytes # (Auto) 0.5 Thou/mm3 (0.0-0.8); Monocytes % (Auto) 9 % (0-12); Neutrophils # (Auto) 2.7 Thou/mm3 (1.8-7.7); Neutrophils % (Auto) 51 % (37-80); Nucleated Red Blood Cell # 0.00 Thou/mm3 (0.00-0.00); Nucleated Red Blood Cell % 0 /100 WBC (0); Platelet Count 211 Thou/mm3 (140-440); RDW Standard Deviation 44.3 fL (36.4-46.3); Red Blood Count 3.23 Miln/mm3 (4.00-5.20); White Blood Count 5.4 Thou/mm3 (3.6-11.0)
[2024-09-21 05:08] LABS: Glucose Estimated Average 131 mg/dL (80-131); Hemoglobin A1C 6.2 % Hgb (4.8-6.0)
[2024-09-21 05:11] LABS: INR 1.0 (0.9-1.3); Partial Thromboplastin Time 30.4 Seconds (22.0-36.0); Prothrombin Time 11.3 Seconds (9.0-12.2)
[2024-09-21 05:27] LABS: Alanine Aminotransferase < 7 U/L (10-49); Albumin, Serum 3.2 gm/dL (3.4-4.8); Albumin/Globulin Ratio 1.6 (1.2-2.2); Alkaline Phosphatase 77 U/L (46-116); Anion Gap 5 (7-16); Aspartate Amino Transferase 14 U/L (0-34); BUN/Creatinine Ratio 16 Ratio (12-20); Bilirubin,Total 0.3 mg/dL (0.3-1.2); Blood Urea Nitrogen 19 mg/dL (9-23); Calcium 8.4 mg/dL (8.3-10.6); Calcium (Corrected) 9.0 mg/dL (8.5-10.1); Carbon Dioxide 27.2 mMol/L (20.0-31.0); Cardiac Risk Estimate 4.9 RATIO (3.7-5.6); Chloride 108 mMol/L (98-107); Cholesterol 183 mg/dL (132-200); Creatinine (Component) 1.2 mg/dL (0.6-1.3); Estimated Creatinine Clearance 32.8 mL/min (>60); Free T4 (Free Thyroxine) 0.77 ng/dL (0.89-1.76); Globulin 2.0 gm/dL (2.3-3.5); Glucose 96 mg/dL (74-106); HDL Cholesterol 37 mg/dL (40-60); LDL Cholesterol,Calculated 131 mg/dL (0-130); Magnesium 1.8 mg/dL (1.6-2.6); Osmolality,Calculated 281 (275-295); Phosphorous 4.6 mg/dL (2.4-5.1); Potassium 3.9 mMol/L (3.4-5.1); Sodium 140 mMol/L (136-145); Thyroid Stimulating Hormone 0.83 uIU/mL (0.55-4.78); Total Protein 5.2 gm/dL (5.7-8.2); Triglycerides 75 mg/dL (30-150); eGFR 46 See Note
--- NOTE | 2024-09-21 05:58 | XR_ITS ---
Examination: Carotid arterial duplex scan, ultrasound. Date and time of exam: September 21, 2024 0744 hours INDICATIONS: CT stroke alert September 20, 2024 Technique: Multiple sonographic images have been obtained of the carotid arteries and vertebral arteries, B-mode/grayscale imaging and Doppler spectral analysis and color flow Peak systolic and diastolic velocities have been recorded. Systolic diastolic ratios have been calculated. Findings: Right peak systolic velocities: Distal internal carotid artery peak systolic velocity is 1.1 M/sec Proximal internal carotid artery peak systolic velocity is 1.6 M/sec Carotid bifurcation peak systolic velocity is 0.4 M/sec External carotid artery peak systolic velocity is 0.8 M/sec Vertebral artery flow is antegrade. Left peak systolic velocities: Distal internal carotid artery peak systolic velocity is 0.6 M/sec Proximal internal carotid artery peak systolic velocity is 0.4 M/sec Carotid bifurcation peak systolic velocity is 0.8 M/sec External carotid artery peak systolic velocity is 0.6 M/sec Vertebral artery flow is antegrade Doppler waveform analysis demonstrates no spectral broadening Impression: Right internal carotid artery demonstrates 10-30% stenosis. Left internal carotid artery demonstrates 0-10% stenosis.
[2024-09-21] MEDS: SODIUM CHLORIDE 0.9% 1000 ML 1,000 ML 100 ML IV ×2 (08:09→18:23)
[2024-09-21] MEDS: LEVOTHYROXINE SODIUM 25 MCG TABLET 12.5 MCG PO (08:10)
[2024-09-21] MEDS: ASPIRIN EC 81 MG TABEC PO (08:14)
[2024-09-21] MEDS: HEPARIN SOD INJ 5000 UNIT/ML VIAL SC ×2 (08:14→20:33)
[2024-09-21] MEDS: cefTRIAXone/D5w 1gm IV premix 1 GM/50 ML BAG IV (08:32)
--- NOTE | 2024-09-21 11:12 | PD.TNEUROPRO ---
Tele Neuro Progress Note Progress Note Date 09/21/24 [facility] TeleNeurology Progress Note Date of Service 09/21/2024 Presentation: Based on previous neurology note(s) 09/20 : 79 year old who presents with mental status changes. Story is taken from as patient states that currently she does not feel any different than she feels at normal baseline. states that he started to realize that there was something different about patient between 12pm and 1pm this afternoon. Patient appeared to be lethargic, talking slower, appeared forgetful, and was moving slower than normal. states that he believed that patient either forgot to take her Prozac, or that patient overmedicated on pain medication. However, as time passed in the afternoon and into the evening, the problem never resolved, in fact it started to appear that it was worsening. For this reason patient presents. On exam patient is awake and alert and fully oriented. Her concentration is normal. Her 1 minute recall is abnormal, she appears to have trouble with memory at this time. She has no aphasia or dysarthria. She has no drift or numbness of an extremity. NIH was 0. On asking how patient was different from normal, states that patient is talking very slow . Patient states I feel normal but states that perhaps she is talking a little bit slower than usual. CT head showed no evidence of bleed. Interval history: 09/21/2024: no events overnight Impression: History of left cerebellar stroke UTI Marijuana use altered mental status likely due to UTI marijuana use acute renal impairment (now improved) Recommendations: (Primary Team to order Controlled Medications) Unless specifically noted I Agree with Impression and Plan from previous Neurology note/consult. 1- Risk factor management If stroke is confirmed: Statin for Goal LDL<70, primary team to order Goal HbA1c<7; Blood pressure management: Blood Pressure target normotension, avoid rapid lowering of Blood Pressure 2- Work up and Results: Brain MRI: old left cerebellar stroke but No Acute Intracranial Abnormality reported. Head and neck Vascular imaging: CTA Head and Neck and Carotid Ultrasound: right KNEE BOLTER stenosis. ECHO: deferring to primary team LDL and HbA1c: 131/6.2 3- Antithrombotic regimen: A- maintain on Aspirin 81mg daily. 4- Supportive and symptomatic treatment, electrolyte management and antibiotics (if any) per primary team. 5- Delirium precautions: Blinds open during the day, closed at night, frequent reorientation, minimize nighttime interruptions, when possible avoid benzodiazepines (except with CIWA protocol), opioid pain medications, anticholinergic medications, and other sedative medications. If patient gets agitated, try verbal de-escalation first. Neurology will sign off. Follow up with outpatient neurology in 3-4 weeks. Please contact [facility] Navigator to reach me if further questions/concerns arise. Examination: Examination done through interactive audio and video telecommunications with the assist of bedside nursing (when available) awake, alert, Oriented x3 speech no aphasia Extraocular movements intact face symmetric arms no drift (10s) coordination intact in finger to nose Patient / Family was informed the Neurology Consult would occur via TeleHealth consult by way of interactive audio and video telecommunications and consented to receiving care in this manner. Patient is being evaluated for possible acute neurologic impairment and high probability of imminent or life - threatening deterioration. I spent total of 15 minutes providing care to this patient, including time for face to face visit via telemedicine, review of medical records, imaging studies and discussion of findings with providers, the patient and / or family. Dr Yordan Conroy [facility] For Inpatient follow-up with [facility] physician please call [facility] . This is not an outpatient service. Post hospital discharge, please contact hospital directly. Please do not communicate with [facility] physicians via secure chat. If you have any questions, Please contact [facility]. Please call or reconsult our service if there are any clinical or diagnostic changes. Most Recent Vital Signs Last Vital Signs Temp 97.7 F 09/21/24 09:56 Pulse 451 H 09/21/24 09:56 Resp 15 09/21/24 09:56 BP 138/51 H 09/21/24 09:56 Pulse Ox 96 09/21/24 09:56 O2 Del Method Room Air 09/21/24 09:56 O2 Flow Rate 2 09/20/24 21:24 Laboratory-Coagulation Panel PT 11.3 Seconds (9.0-12.2) 09/21/24 04:20 INR 1.0 (0.9-1.3) 09/21/24 04:20 APTT 30.4 Seconds (22.0-36.0) 09/21/24 04:20
--- NOTE | 2024-09-21 11:53 | ESPR_ITS ---
<Statement entered by Rene Caldwell MD - 09/22/24 17:11> Patient was seen and examined at bedside. I agree on the assessment and plan on this note as documented by resident Cori Spencer PGY1. Patient admitted for stroke workup, does have a systolic murmur, urine analysis did not indicate underlying UTI with some neurological symptoms patient does have underlying complicated UTI we will continue with IV antibiotics, follow-up urine culture and blood culture. Does have asymptomatic bradycardia, cardiology is consulted, patient is on metoprolol succinate for hypertension management which we will hold for now, no history of atrial fibrillation. Does have underlying acute kidney injury for which patient did receive IV fluids. MRI obtained for stroke workup is negative for any acute infarct. Patient's disposition telemetry, pending cardiology recommendations and cultures. Case discussed with attending Dr. Marie Caldwell MD PGY-2 Documentation for date of: 09/21/24 Subjective Subjective Interval history: Patient admitted overnight. Seen and examined at in ED with . Patient denies any current nausea, chest pain, shortness of breath, abdominal pain, palpitations or urinary symptoms. Per patient mentation seems to be better, is remembering more and slowed speech is now regular. Patient is ANO x 3, but is unaware of why she is in the hospital. Per patient had a previous stroke in 2001, but does not know what region was affected but that she has to take anger management classes and Prozac as a result. Last bowel movement two days ago, no diarrhea. Patient herself reports home medications: Prozac 50 mg daily, pravastatin 50 mg daily, valsartan 300 mg daily, metoprolol 5 mg daily, loratadine as needed and furosemide as needed problems per patient furosemide does not for heart failure but for her previous CVA to take when she gets headaches. Admitted for stroke rule out versus UTI encephalopathy. So far stroke workup negative as in plan. UA on admission indicates current urinary tract infection, blood cultures and urine cultures pending. Patient currently on ceftriaxone started 10/10. Admission patient was also found to be bradycardic heart rate in the 40s, on metoprolol at home prescribed by Dr. Cesar for blood pressure as patient is unaware if she has heart problems. Does not have a material cutter. Initially on admission had LELA with creatinine of 1.4 baseline 0.9, but now 1.2 after fluids. Exam Vital Signs Temp Pulse Resp BP Pulse Ox O2 Del Method O2 Flow Rate 97.7 F 451 H 15 138/51 H 96 Room Air 2 09/21/24 09:56 09/21/24 09:56 09/21/24 09:56 09/21/24 09:56 09/21/24 09:56 09/21/24 09:56 09/20/24 21:24 Narrative Exam GENERAL: AOx3, no acute distress HEENT: NC/AT, mucous membranes dry, bilateral sclera anicteric CARDIOVASCULAR: regular rate and rhythm, S1/S2 present, 3/6 harsh systolic murmur PULMONARY: clear to auscultation bilaterally, no rales/rhonchi/wheezes ABDOMINAL: soft, non-tender, non-distended, no rebound/guarding, bowel sounds present EXTREMITIES: no peripheral edema SKIN: warm and dry, intact, no rashes NEURO: CN II-XII grossly intact, no focal deficits, alert, following commands Objective Labs 09/22/24 05:22 09/22/24 05:22 Labs: Laboratory Results - last 24 hr 09/20/24 09/20/24 09/21/24 21:44 22:19 04:20 WBC 6.1 5.4 RBC 3.22 L 3.23 L Hgb 9.8 L 9.9 L Hct 30.4 L 30.8 L MCV 94 95 MCH 30.4 30.7 MCHC 32.2 32.1 RDW Std Deviation 45.3 44.3 Plt Count 232 211 Neut % (Auto) 58 51 Lymph % (Auto) 33 37 [place] % (Auto) 8 9 Eos % (Auto) 1 2 Baso % (Auto) 0 1 Neut # (Auto) 3.5 2.7 Lymph # (Auto) 2.0 2.0 [place] # (Auto) 0.5 0.5 Eos # (Auto) 0.1 0.1 Baso # (Auto) 0.0 0.0 Immature Gran # (Auto) 0.02 H 0.01 H Absolute Nucleated RBC 0.00 0.00 Immature Gran % 0 0 Nucleated RBC % 0 0 ESR 14 PT 11.1 11.3 INR 1.0 1.0 APTT 29.5 30.4 Sodium 139 140 Potassium 3.8 3.9 Chloride 105 108 H Carbon Dioxide 25.6 27.2 Anion Gap 8 5 L BUN 24 H 19 Creatinine 1.4 H 1.2 Estim Creat Clear Calc 28.1 L 32.8 L eGFR 38 L 46 L BUN/Creatinine Ratio 17 16 Glucose [address] Glu mg/dL 131 Hemoglobin A1c 6.2 H Calculated Osmolality 281 281 Lactic Acid 1.0 Calcium 8.6 8.4 Corrected Calcium 9.0 9.0 Phosphorus 4.6 Magnesium 2.0 1.8 Total Bilirubin 0.3 0.3 Direct Bilirubin < 0.1 AST 16 14 ALT 8 L < 7 L Alkaline Phosphatase 83 77 Troponin I < 0.020 C-Reactive Prot, Quant < 0.5 B-Natriuretic Peptide 108 H Total Protein 5.6 L 5.2 L Albumin 3.5 3.2 L Globulin 2.1 L 2.0 L Albumin/Globulin Ratio 1.7 1.6 Triglycerides 75 Cholesterol 183 LDL Cholesterol, Calc 131 H HDL Cholesterol 37 L Cholesterol/HDL Ratio 4.9 Procalcitonin < 0.04 TSH 0.60 0.83 Free T4 0.81 L 0.77 L Ur Collection Type Clean Catch Urine Color Yellow Urine Clarity Turbid A Urine pH 6.5 Ur Specific [place] 1.040 H Urine Protein Negative Urine Glucose (UA) Negative Urine Ketones Negative Urine Blood Trace Urine Nitrite Positive Urine Bilirubin Negative Urine Urobilinogen (Auto) Negative Ur Leukocyte Esterase Positive Urine RBC 15 H Urine WBC 34 H Ur Squamous Epith Cells 12 H Urine Bacteria 3+ A Hyaline Casts < 1 Urine Opiates Screen Negative Urine Fentanyl Screen Negative Ur Barbiturates Screen Negative U Amphetamin/Meth Scrn Negative U Benzodiazepines Scrn Negative U Cocaine Metab Screen Negative U Marijuana (THC) Screen Positive A Ethyl Alcohol < 3.0 Quality Measures Quality Measures stroke Suspected type of Stroke: Unknown at this time Tenecteplase given: Reason(s) Tenecteplase not given: Outside the time window not given Rehab services: PT evaluation ordered VTE Prophylaxis: pharmaceutical Antithrombotic by day 2:: not indicated (describe) Statin ordered: >75 y/o moderate or high intensity dose Anticoagulation ordered for A-fib or flutter (current or hx): not indicated Advance care planning discussed with:: patient Assessment & Plan Assessment Current Active Medications: Generic Name Dose Route Start Last Admin Trade Name Freq PRN Reason Stop Dose Admin Acetaminophen 650 mg 09/20/24 23:32 Acetaminophen 325 Mg Tablet PO 10/20/24 23:31 Q6H PRN Fever >100.4 or pain 1-3 Hydrocodone Bitart/Acetaminophen 1 tab 09/20/24 23:32 Hydrocodone/Apap 5/325 Tablet PO 09/25/24 23:31 Q4HR PRN PAIN SCALE 4-10(Mod-Sev Aspirin 81 mg 09/21/24 09:00 09/21/24 08:14 Aspirin Ec 81 Mg Tabec PO 10/21/24 08:59 81 mg QDAY ONELIA Administration Atorvastatin Calcium 80 mg 09/21/24 21:00 Atorvastatin Calcium 20 Mg Tablet PO 10/21/24 20:59 HS ONELIA Docusate Sodium 100 mg 09/20/24 23:32 Docusate Sod 100 Mg Capsule PO 10/20/24 23:31 QDAY PRN CONSTIPATION Protocol Heparin Sodium (Porcine) 5,000 unit 09/21/24 09:00 09/21/24 08:14 Heparin Sod Inj 5000 Unit/Ml Vial SC 10/05/24 08:59 5,000 unit Q12HR ONELIA Administration Sodium Chloride 1,000 mls @ 100 mls/hr 09/20/24 21:00 09/21/24 08:09 Ns IV 10/20/24 20:59 100 mls/hr Q10H ONELIA Administration Ceftriaxone Sodium/Dextrose 1 gm in 50 mls @ 100 mls/hr 09/20/24 23:41 09/21/24 09:05 Rocephin/D5w 1gm Iv Premix IV 09/27/24 23:40 Infused QDAY ONELIA Infusion Levothyroxine Sodium 12.5 mcg 09/21/24 06:00 09/21/24 08:10 Levothyroxine Sodium 25 Mcg Tablet PO 10/21/24 05:59 12.5 mcg ACBR ONELIA Administration Ondansetron HCl 4 mg 09/20/24 23:32 Ondansetron Inj 2 Mg/Ml Inj 2 Ml IVP 10/20/24 23:31 Q6H PRN NAUSEA OR VOMITING Protocol Sennosides 1 tab 09/20/24 23:32 Senna Tablet PO 10/20/24 23:31 QDAY PRN constipation Protocol Plan Cindi Hess is a 79 y/o F with PMHx significant for CVA in 2001 and HTN presented on 09/20 presented with confusion and slowed speech, admitted for stroke rule out vs infectious encephalopathy 2/2 UTI #Acute encephalopathy, resolving, likely 2/2 #UTI #Stroke ruled out Patient presented with 3 day hx of confusion and slowed speech per . Has hx of CVA in 2001 and was previously on blood thinner, none now. CT head unremarkable, head and neck CTA showed no filling left vertebral artery, 50% narrowing basilar artery, 80% stenosis right posterior cerebral artery. Brain MRI negative for acute hemorrhage, no acute infarct, large old infarct in the left cerebellar hemisphere, chronic microvascular white matter change. Carotid Doppler study shows R ICA 10-30% stenosis and L ICA 0-10% stenosis. Stroke ruled out. On exam patient was A&Ox3, however somewhat forgetful of recent events. NIHSS 0 Admission UA turbid,+LE and nitrites, 3+ bacteria and 34 WBC, indicating active UTI which is likely cause of AMS s/p 2L NS in ED Plan: - Teleneuro consulted, recs appreciated - Contniue Aspirin 81 mg daily - Atorvastatin 80 mg p.o. at bedtime - Ceftriaxone (09/20- - F/u UCx and BCx #LELA Patient presented with mild LELA, BUN 24, creatinine 1.4, EGFR 38. Baseline creatinine 0.9, baseline EGFR greater than 60. Likely prerenal from dehydration and active UTI. s/p 2L NS with decrease in Cr from 1.4 to 1.2. Plan: - Avoid nephrotoxins - Renally dose meds as needed - CTM Cr #Bradycardia, stable, asymptomatic Patient noted to be bradycardic on exam. Has hx of bradycardia but has not seen a material cutter. EKG showed sinus bradycardia with first-degree AV block. Home medication includes metoprolol 25 mg daily prescribed by PCP. Ddx: medication induced from metoprolol vs untreated hypothyroidism Plan: - Tele to monitor for arrhythmia - Cardiology consulted, recs apprecaited - Keep K>4 and Mg>2 - Hold home metoprolol #Hypothyroidism TSH wnl T4 low at 0.81, repeat still low T4 0.77. Possibly undiagnosed hypothyroidism vs 2/2 infectious encephalopathy from UTI s/p levothyroxine 12.5 mcg x1 in ED Plan: - Hold levothyroxine for now - Consider further labs and imaging as warranted. #HTN Patient history of hypertension. Home medications include valsartan 300 mg daily and metoprolol 25 mg daily. Plan: - Hold home hypertensives iso systolic 115-125 - Permissive hypertension for 24 hours for stroke protocol Hospital management: Lines: peripheral Diet: Cardiac Bowel: Senna GI prophylaxis: None DVT prophylaxis: heparin Disposition: tele for abx CODE STATUS: Full code Plan of care discussed with attending Dr. Salazar, and PGY-2 Dr. Caldwell. Cori Spencer, DO PGY-1 Internal Medicine Attending Provider Attestation/Addendum I attest that I was physically present for the evaluation, physical examination, lab and imaging review of the patient with the residents. I discussed the case with the residents and agree with the findings and plans of care as documented above. Laurel Salazar MD
--- NOTE | 2024-09-21 17:30 | PC.NURSE ---
will bring home medications for reconcillation.
--- NOTE | 2024-09-21 18:53 | ESCONSULT_ITS ---
HPI Data of Consult Requesting Physician: Laurel Salazar MD Admitting Provider: Tracy Pizarro MD Attending Provider: Laurel Salazar MD Primary Care Provider: Physician No Primary/Family Consult Narrative History of present illness: 79 y/o F with PMHx significant for CVA without residual deficits, HTN, arthritis presented to ED from home with chief complaint confusion and slurred speech. Per family at bedside, the patient experienced an episode during which she did not appear to recognize her daughter. Additionally, she has been noted to be forgetful with simple tasks and exhibited slowed speech with delayed responses. These symptoms had improved by the time of evaluation.The patient denies associated symptoms including fatigue, fever, chills, chest pain, shortness of breath, nausea, vomiting, dysuria, or constipation. On exam, the patient was noted to be bradycardic but hemodynamically stable and asymptomatic. Chart review reveals a history of chronic bradycardia documented over several years. Cardiology is being consulted for concern over low heart rate CT head unremarkable, head and neck CTA showed no filling left vertebral artery, 50% narrowing basilar artery, 80% stenosis right posterior cerebral artery. Brain MRI negative for acute hemorrhage, no acute infarct, large old infarct in the left cerebellar hemisphere, chronic microvascular white matter change. Carotid Doppler study shows R ICA 10-30% stenosis and L ICA 0-10% stenosis. Stroke ruled out. ED COURSE: Labs significant for: Hemoglobin 9.8, BUN 24, creatinine 1.4, EGFR 38. Urinalysis showing positive nitrates, positive LE, 15 RBCs, 34 WBCs, 12 epithelial cells, 3+ bacteria. U tox positive for marijuana. Imaging significant for: Chest x-ray negative. CT head negative. Head and neck CTA showing no filling of left vertebral artery, 50% narrowing basilar artery, 80% stenosis right posterior cerebral artery. No LVO. PMH: CVA, hypertension, arthritis. PSH: Bilateral knee replacement, right shoulder replacement. SH: Denies alcohol or tobacco use. Endorses nightly THC use. Allergies:?Succinylcholine Medications: Pravastatin, valsartan, Prozac cc:: cc: Laurel Salazar MD Exam Vital Signs Temp Pulse Resp BP Pulse Ox O2 Del Method O2 Flow Rate 97.6 F 44 L 24 H 110/50 L 94 L Room Air 2 09/21/24 16:00 09/21/24 16:00 09/21/24 16:00 09/21/24 16:00 09/21/24 16:00 09/21/24 16:00 09/20/24 21:24 Narrative Exam General: Alert and oriented x3, No apparent distress. Skin: Intact, Warm, no rashes. HEENT: Normocephalic, Atraumatic. Normal neck range of motion, Supple. Trachea midline. Respiratory: Lungs are clear to auscultation, Breath sounds are equal bilaterally with equal chest expansion. Cardiovascular: RRR, normal S1, S2, 3/6 harsh systolic murmur. Distal pulses 2+ Abdomen: Abdomen soft, non-distended, without erythema, or lesions. Normotensive bowel sounds x4. Percussion tympanic. Palpation nontender in all four quadrants. No organomagely. No guarding or rebound present. Musculoskeletal/Extremities: No erythema, swelling, tenderness of any joints. No edema of BLE. DP pulses +2/3 b/l. Full active ROM of all four extremities. Neurologic: NEURO: Oriented x3, cranial nerves II to XII grossly intact. Cerebellar exam ([id number]-[id number], [id number]) intact. Muscle strength 5/5 on UE and LE b/l, Moves extremities x4. Sensation intact to gross touch along C6-T1 and L2-S1 dermatomes. No focal neurologic deficits noted Psych: Thoughts linear and responses appropriate. Results Labs 09/22/24 05:22 09/22/24 05:22 Labs: Short CBC 09/20/24 09/21/24 Range/Units 21:44 04:20 WBC 6.1 5.4 (3.6-11.0) Thou/mm3 Hgb 9.8 L 9.9 L (12.0-16.0) g/dL Hct 30.4 L 30.8 L (36.0-46.0) % Plt Count 232 211 (140-440) Thou/mm3 BMP 09/20/24 09/21/24 21:44 04:20 Sodium 139 140 Potassium 3.8 3.9 Chloride 105 108 H Carbon Dioxide 25.6 27.2 BUN 24 H 19 Creatinine 1.4 H 1.2 Glucose 105 96 Calcium 8.6 8.4 Cardiac Enzymes 08/04/25 Range/Units 21:44 Troponin I < 0.020 (0.0-0.045) ng/mL Liver Function 09/20/24 09/21/24 Range/Units 21:44 04:20 Total Bilirubin 0.3 0.3 (0.3-1.2) mg/dL Direct Bilirubin < 0.1 (0.0-0.3) mg/dL AST 16 14 (0-34) U/L ALT 8 L < 7 L (10-49) U/L Alkaline Phosphatase 83 77 (46-116) U/L Albumin 3.5 3.2 L (3.4-4.8) gm/dL Urine 09/20/24 Range/Units 22:19 Urine Color Yellow (Lt Yel-Yel) Urine Clarity Turbid A (Clear/Hazy) Urine pH 6.5 (5.0-7.0) Ur Specific [place] 1.040 H (1.001-1.035) Urine Protein Negative (Neg - Trace) Urine Glucose (UA) Negative (Negative) Quality Measures Quality Measures stroke Suspected type of Stroke: Unknown at this time Tenecteplase given: Reason(s) Tenecteplase not given: Outside the time window not given Rehab services: PT evaluation ordered VTE Prophylaxis: pharmaceutical Antithrombotic by day 2:: not indicated (describe) Statin ordered: >75 y/o moderate or high intensity dose Anticoagulation ordered for A-fib or flutter (current or hx): not indicated Advance care planning discussed with:: patient Medications Home Medications and Allergies Home Medications ?Medication ?Instructions ?Recorded ?Confirmed ?Type furosemide 20 mg tablet 20 mg PO QDAY 10/09/1809/21 History fluoxetine 40 mg capsule 40 mg PO QDAY 05/23/2109/21 History lisinopril 40 mg tablet 40 mg PO QDAY 05/23/2109/21 History metoprolol succinate 25 mg 25 mg PO QDAY 05/23/2107/11 History tablet,extended release 24 hr chlorthalidone 25 mg tablet 25 mg PO QDAY 09/21/2407/11 History lactulose 10 gram/15 mL oral 10 g PO QDAY PRN constipa tion 09/21/24 09/21/24 History solution pravastatin 20 mg tablet 20 mg PO QDAY 09/21/2409/21 History valsartan 320 mg tablet 320 mg PO QDAY 09/21/24 08/0 07/11 History Allergies Allergy/AdvReac Type Severity Reaction Status Date / Time succinylcholine (From Allergy Severe STOPPED Verified 09/20/24 20:51 Anectine) BREATHING Visit Medications Acetaminophen (Acetaminophen 325 Mg Tablet) 650 mg PO Q6H PRN PRN Reason: Fever >100.4 or pain 1-3 Stop: 10/20/24 23:31 Hydrocodone Bitart/Acetaminophen (Hydrocodone/Apap 5/325 Tablet) 1 tab PO Q4HR PRN PRN Reason: PAIN SCALE 4-10(Mod-Sev Stop: 09/25/24 23:31 Aspirin (Aspirin Ec 81 Mg Tabec) 81 mg PO QDAY [facility] Stop: 10/21/24 08:59 Last Admin: 09/21/24 08:14 Dose: 81 mg Atorvastatin Calcium (Atorvastatin Calcium 20 Mg Tablet) 80 mg PO HS [facility] Stop: 10/21/24 20:59 Docusate Sodium (Docusate Sod 100 Mg Capsule) 100 mg PO QDAY PRN; Protocol PRN Reason: CONSTIPATION Stop: 10/20/24 23:31 Heparin Sodium (Porcine) (Heparin Sod Inj 5000 Unit/Ml Vial) 5,000 unit SC Q12HR ONELIA Stop: 10/05/24 08:59 Last Admin: 09/21/24 08:14 Dose: 5,000 unit Sodium Chloride (Ns) 1,000 mls @ 100 mls/hr IV Q10H ONELIA Stop: 10/20/24 20:59 Last Admin: 09/21/24 18:23 Dose: 100 mls/hr Ceftriaxone Sodium/Dextrose (Rocephin/D5w 1gm Iv Premix) 1 gm in 50 mls @ 100 mls/hr IV QDAY [facility] Stop: 09/27/24 23:40 Last Infusion: 09/21/24 09:05 Dose: Infused Levothyroxine Sodium (Levothyroxine Sodium 25 Mcg Tablet) 12.5 mcg PO ACBR ONELIA Stop: 10/21/24 05:59 Last Admin: 09/21/24 08:10 Dose: 12.5 mcg Ondansetron HCl (Ondansetron Inj 2 Mg/Ml Inj 2 Ml) 4 mg IVP Q6H PRN; Protocol PRN Reason: NAUSEA OR VOMITING Stop: 10/20/24 23:31 Sennosides (Senna Tablet) 1 tab PO QDAY PRN; Protocol PRN Reason: constipation Stop: 10/20/24 23:31 Discontinued Medications Aspirin (Aspirin Ec 81 Mg Tabec) 81 mg PO X1 ONE Stop: 09/20/24 22:40 Last Admin: 09/20/24 23:10 Dose: 81 mg Atorvastatin Calcium (Atorvastatin Calcium 20 Mg Tablet) 80 mg PO X1 ONE Stop: 09/20/24 22:46 Last Admin: 09/20/24 23:10 Dose: 80 mg Levothyroxine Sodium (Levothyroxine Sodium 25 Mcg Tablet) 12.5 mcg PO ACBR ONELIA Stop: 10/21/24 05:59 Potassium Chloride (Potassium Chloride 20 Meq Tabcr) 20 meq PO X1 ONE Stop: 09/21/24 00:43 Last Admin: 09/21/24 01:57 Dose: 20 meq Potassium Chloride (Potassium Chloride 10% 20 Meq/15 Ml Udc) 20 meq PO X1 ONE Stop: 09/21/24 08:35 Last Admin: 09/21/24 09:34 Dose: Not Given Assessment & Plan Plan 79 y/o F with PMHx significant for CVA without residual deficits, HTN, arthritis presented to ED from home with chief complaint confusion and slurred speech. The primary team and consulted cardiology for concern over low heart rate. Per patient chart, she appears to be bradycardic with heart rate in the range of 40s and 50s since 05/2021. CT head unremarkable, head and neck CTA showed no filling left vertebral artery, 50% narrowing basilar artery, 80% stenosis right posterior cerebral artery. Brain MRI negative for acute hemorrhage, no acute infarct, large old infarct in the left cerebellar hemisphere, chronic microvascular white matter change. Carotid Doppler study shows R ICA 10-30% stenosis and L ICA 0-10% stenosis. Stroke ruled out. Problems: #Bradycardia, stable, asymptomatic #acute encephalopathy, resolving #UTI #Stroke rule out #LELA #Hypothyroidism #Hypertension EKG obtained on September 20, 2024 shows sinus bradycardia with first-degree AV block with occasional supraventricular premature complexes. QTc on EKG prolonged at 430. On echocardiogram ultrasound completed in early 2019 patient was noted to have aortic stenosis and regurgitation. Indeed, chronic aortic stenosis can lead to LVH, mitral insufficiency, LA enlargement, increasing the risk for atrial fibrillation. Patient is noted to be on metoprolol succinate p.o. 25 mg daily for a likely previous finding of atrial fibrillation, which is now resolved. Patient is 79 years old, and atrial fibrillation is a common finding in elderly patients above 70 (close to 30% of patients with similar demographics). Another probable contributing factor to bradycardia is low thyroid hormone levels. TSH 0.83 and within normal limits. Free T4 low at 0.77 on labs from today Blood pressure can vary from 100s to 140s systolic, however patient denies lightheadedness, dizziness, mental status changes. Hemoglobin 9.9 and is stable. A1c 6.2. HDL 131, cholesterol 183, triglycerides 75. ? We recommend monitoring the patient closely for symptoms secondary to bradycardia as delineated above. --We recommend having IVP 1mg atropine available to administer emergnetly if the patient should become acutely symptomatic with hypotension, altered mental status, develop signs of shock or ischemic chest discomfort, to be repeated every 3-5min for a maximum dose of 3mg, per ACLS guidelines. Treatment is indicated only if the pt is symptomatic. ? Consider titrating down metoprolol succinate p.o. 25 mg as tolerated, while maintaining rate and rhythm control. ?Patient has hyperlipidemia as well as prediabetes, which are risk factors for CAD. Recommend continuing with pravastatin 20 mg p.o. daily. ?Recommend keeping potassium greater than 4 and magnesium greater than 2. Thank you for cardiology consultation. We appreciate the opportunity to participate in this patient's care. Will continue to follow-up on this patient This case was discussed with my attending physician, Dr. Thompson, book solicitor. Tomeka Mina, PGY I
[2024-09-21] MEDS: ATORVASTATIN CALCIUM 20 MG TABLET 80 MG PO (20:32)
[2024-09-22] VITALS (7 sets, daily range): BP systolic 124–149; BP diastolic 54–58; PULSE 42–58; RESP 16–98; TEMP 36.1–36.5; O2SAT 96–98
[2024-09-22] MEDS: SODIUM CHLORIDE 0.9% 1000 ML 1,000 ML 100 ML IV (05:37)
--- NOTE | 2024-09-22 06:00 | EKG_ITS ---
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
[2024-09-22 06:10] LABS: Basophils # (Auto) 0.0 Thou/mm3 (0.0-0.2); Basophils % (Auto) 0 % (0-2.5); Eosinophils # (Auto) 0.1 Thou/mm3 (0.0-0.5); Eosinophils % (Auto) 3 % (0-10); Hematocrit 29.5 % (36.0-46.0); Hemoglobin 9.8 g/dL (12.0-16.0); Immature Granulocytes Auto 0.01 Thou/mm3 (0.00-0.00); Lymphocytes # (Auto) 1.7 Thou/mm3 (1.0-4.8); Lymphocytes % (Auto) 31 % (10-50); Mean Corpuscular HGB Conc 33.2 g/dl (31.0-37.0); Mean Corpuscular Hemoglobin 31.1 pg (25.0-35.0); Mean Corpuscular Volume 94 fL (80-100); Monocytes # (Auto) 0.4 Thou/mm3 (0.0-0.8); Monocytes % (Auto) 7 % (0-12); Neutrophils # (Auto) 3.1 Thou/mm3 (1.8-7.7); Neutrophils % (Auto) 58 % (37-80); Nucleated Red Blood Cell # 0.00 Thou/mm3 (0.00-0.00); Nucleated Red Blood Cell % 0 /100 WBC (0); Platelet Count 208 Thou/mm3 (140-440); RDW Standard Deviation 44.5 fL (36.4-46.3); Red Blood Count 3.15 Miln/mm3 (4.00-5.20); White Blood Count 5.4 Thou/mm3 (3.6-11.0)
[2024-09-22 06:53] LABS: Path Review Blood Smear Sent to Pathologist
[2024-09-22 07:01] LABS: Alanine Aminotransferase < 7 U/L (10-49); Albumin, Serum 3.0 gm/dL (3.4-4.8); Albumin/Globulin Ratio 1.8 (1.2-2.2); Alkaline Phosphatase 80 U/L (46-116); Anion Gap 7 (7-16); Aspartate Amino Transferase 14 U/L (0-34); BUN/Creatinine Ratio 21 Ratio (12-20); Bilirubin,Total 0.2 mg/dL (0.3-1.2); Blood Urea Nitrogen 19 mg/dL (9-23); Calcium 7.8 mg/dL (8.3-10.6); Calcium (Corrected) 8.6 mg/dL (8.5-10.1); Carbon Dioxide 24.9 mMol/L (20.0-31.0); Chloride 110 mMol/L (98-107); Creatinine (Component) 0.9 mg/dL (0.6-1.3); Estimated Creatinine Clearance 50.1 mL/min (>60); Globulin 1.7 gm/dL (2.3-3.5); Glucose 91 mg/dL (74-106); Magnesium 2.0 mg/dL (1.6-2.6); Osmolality,Calculated 285 (275-295); Phosphorous 4.0 mg/dL (2.4-5.1); Potassium 4.2 mMol/L (3.4-5.1); Sodium 142 mMol/L (136-145); Total Protein 4.7 gm/dL (5.7-8.2); eGFR > 60 See Note
[2024-09-22] MEDS: ASPIRIN EC 81 MG TABEC PO (08:35)
[2024-09-22] MEDS: HEPARIN SOD INJ 5000 UNIT/ML VIAL SC (08:36)
[2024-09-22] MEDS: cefTRIAXone/D5w 1gm IV premix 1 GM/50 ML BAG IV (08:36)
--- NOTE | 2024-09-22 09:33 | PC.SS ---
[id number] called pts son Miko Hess [phone] to ask if they would be picking up the pt once ready for d/c and Miko confirmed yes. Miko reported that the pts decision and family decision would be for the the pts to recover at home and the family will care take for the pt. 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
--- NOTE | 2024-09-22 11:47 | PC.NURSE ---
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 mott
--- NOTE | 2024-09-22 13:28 | ESDS_ITS ---
<Statement entered by Rene Caldwell MD - 09/23/24 16:08> Patient was seen and examined by me personally. I have reviewed the below documentation by the team resident and agree with its findings. Discharge plan was discussed with the attending, Dr. Salazar. Rene Caldwell MD Internal Medicine, PGY-2 Planned Discharge Date 09/22/24 DS: Providers Provider Date of admission: 09/20/24 23:32 Primary care physician: Physician No Primary/Family Admitting Provider: Tracy Pizarro MD Attending Provider on Admission: Laurel Salazar MD Consults: 09/20/24 20:53 Consult to Neurology / Tele-Neurology Routine Comment: Consulting Provider: [facility] 09/20/24 23:32 Referral Physical Therapy Routine Comment: Physician Instructions: 09/21/24 11:52 Consult to Cardiology Routine Comment: Consulting Provider: Dajuan Thompson Attending Provider on DC: Laurel Salazar MD Discharging Provider: Laurel Salazar MD DS: Diagnosis Problem List Completed Was Problem List Reviewed/Reconciled?: Yes Hospital Course Hospital Course Hospital course: Summary: 79 y/o F with PMHx significant for CVA without residual deficits, HTN, arthritis presented to [facility] ED on 09/20 from home with confusion and slowed speech starting a few days prior to admission, admitted for UTI intially thought to be stroke. S troke workup negative, imaging as below. Patient was also found to have urinary tract infection growing gram-negative rods and patient was treated with ceftriaxone with improvement of altered mental status. On admission patient was also noted to be bradycardic with heart rate in the 40s, which has been chronic. Stable asymptomatic bradycardia throughout hospital stay. Patient admits to taking metoprolol at home which would be stopped on discharge per cardiology consult. Patient was also found to have hypothyroidism with normal TSH, and is recommended to follow-up outpatient. Vital signs are stable on discharge and patient is feeling ready to go home. Imaging: Head and neck CTA showed no filling left vertebral artery, 50% narrowing basilar artery, 80% stenosis right posterior cerebral artery Brain MRI negative for acute hemorrhage, no acute infarct, large old infarct in the left cerebellar hemisphere, chronic microvascular white matter change Carotid Doppler study shows R ICA 10-30% stenosis and L ICA 0-10% stenosis. Stroke ruled out. Discharge Recommendations: - Please take all medications as prescribed - START taking Augmentin for 5 more days - START taking aspirin 81 mg daily - STOP taking metoprolol - HOLD Lasix until you see your PCP provider - Continue taking home Prozac, pravastatin. chlorthalidone and valsartan - Please follow up with your PCP within one week of discharge - If your symptoms worsen, please seek immediate medical attention and return to your nearest emergency room. - If you do not have a PCP, you may follow up at the [facility] at [address] [place] [address] [address] [id number], Hospital Diagnoses: #Acute encephalopathy, resolving, likely 2/2 #UTI, GNR #Stroke, ruled out #LELA #Bradycardia, stable, asymptomatic #Hypothyroidism #HTN Status at Discharge Cognitive/behavioral status at discharge: Stable Functional status at discharge: independent ambulation Overall status at discharge: patient is back to baseline Time Spent with Patient Time attestation: Total time spent providing and/or coordinating discharge services: 34 min Time spent: Greater than 30 minutes Exam Vital Signs Temp Pulse Resp BP Pulse Ox O2 Del Method O2 Flow Rate 97.0 F 46 L 19 149/58 H 96 Room Air 2 09/22/24 08:00 09/22/24 12:00 09/22/24 08:00 09/22/24 08:00 09/22/24 08:00 09/22/24 08:00 09/20/24 21:24 Narrative Exam GENERAL: AOx3, no acute distress HEENT: NC/AT, mucous membranes moist, bilateral sclera anicteric CARDIOVASCULAR: regular rate and rhythm, S1/S2 present, 3/6 harsh systolic murmur PULMONARY: clear to auscultation bilaterally, no rales/rhonchi/wheezes ABDOMINAL: soft, non-tender, non-distended, no rebound/guarding, bowel sounds present EXTREMITIES: no peripheral edema SKIN: warm and dry, intact, no rashes NEURO: CN II-XII grossly intact, no focal deficits, alert, following commands Discharge Plan Plan Patient Disposition: HOME (Self Care) Patient condition on transfer: Stable Care Plan Goals: -Follow up with PCP within 1 week of discharge, if you do not have a primary care physician you can come see us at the [facility] by calling [phone] -You have been prescribed antibiotics for 5 additional days, please complete the course -Follow up outpatient with your Care Attendant with 1 week of discharge -Continue rest of medications as previously prescribed -Return to the ED or call EMS if symptoms return and/or worsen Prescriptions/Referrals Prescriptions/Med Rec: New aspirin 81 mg Tablet,Delayed Release (Dr/Ec) 81 mg PO QDAY Qty: 30 1RF amoxicillin-pot clavulanate 875-125 mg tablet 1 tab PO BID Qty: 10 0RF Continued fluoxetine 40 mg capsule 40 mg PO QDAY Patient Comments: TAKE 2 CAPSULES BY MOUTH EVERY DAY DIRECTED pravastatin 20 mg tablet 20 mg PO QDAY valsartan 320 mg tablet 320 mg PO QDAY lactulose 10 gram/15 mL solution 10 g PO QDAY PRN (Reason: constipation) chlorthalidone 25 mg tablet 25 mg PO QDAY Held furosemide 20 mg tablet 20 mg PO QDAY Hold Instructions: Resume on 10/06/24. Please see your shipping and receiving associate and primary care before resuming Discontinued metoprolol succinate 25 mg tablet extended release 24 hr 25 mg PO QDAY Patient Comments: TAKE 1 TABLET BY MOUTH EVERY DAY IN THE MORNING lisinopril 40 mg tablet 40 mg PO QDAY Referrals: No Primary/Family,Physician [Primary Care Provider] - Patient/Caregiver Discharge Instructions Discharge Activity: activity as tolerated Education Materials: Anatomy of the Female Urinary Tract, Urinary Tract Infections in Women, Understanding Urinary Tract ..., When to Use Antibiotics, ED Symptoms With Uncertain Cause Print Language: Sami Stand Alone Forms: Alivia Award Info., Patient Portal Info Letter, Work/Release Restrictions Discharge Order Discharge Orders: Discharge (Routine); Ordered 09/22/24 Ordered By: Karly Sierra Quality Discharge Quality Measures VTE prophylaxis Attestestation MD Attestation I attest that I was physically present for the evaluation, physical examination, lab and imaging review of the patient with the residents. I discussed the case with the residents and agree with the findings and plans of care as documented above. Laurel Salazar MD
--- NOTE | 2024-09-22 22:39 | PD.RESPRO ---
Documentation for date of: 09/22/24 Subjective Subjective Interval history: 79 y/o F with PMHx significant for CVA without residual deficits, HTN, arthritis presented to ED from home with chief complaint confusion and slurred speech. Per family at bedside, the patient experienced an episode during which she did not appear to recognize her daughter. Additionally, she has been noted to be forgetful with simple tasks and exhibited slowed speech with delayed responses. These symptoms had improved by the time of evaluation.The patient denies associated symptoms including fatigue, fever, chills, chest pain, shortness of breath, nausea, vomiting, dysuria, or constipation. On exam, the patient was noted to be bradycardic but hemodynamically stable and asymptomatic. Chart review reveals a history of chronic bradycardia documented over several years. Cardiology is being consulted for concern over low heart rate CT head unremarkable, head and neck CTA showed no filling left vertebral artery, 50% narrowing basilar artery, 80% stenosis right posterior cerebral artery. Brain MRI negative for acute hemorrhage, no acute infarct, large old infarct in the left cerebellar hemisphere, chronic microvascular white matter change. Carotid Doppler study shows R ICA 10-30% stenosis and L ICA 0-10% stenosis. Stroke ruled out. 09/22/2024 --Patient was seen and examined at bedside. No acute events took place overnight. BP 124/54 heart, pulse 46, respirations 22, WBC 5.4, hemoglobin 9.8, BUN 19, creatinine 0.9, glucose 91. CTA of head and neck showed absent filling of proximal left vertebral artery. 50% narrowing in the basilar artery. More than 80% stenosis of right posterior cerebral artery. CT head was negative for hemorrhage, masses, midline shift. Brain MRI confirmed the aforementioned negative CT f finding. Echo done at bedside aleida normal EF 50-55%, normal RV and LV function. Exam Vital Signs Temp Pulse Resp BP Pulse Ox O2 Del Method O2 Flow Rate 97.0 F 46 L 22 H 124/54 L 98 Room Air 2 09/22/24 16:00 09/22/24 16:00 09/22/24 16:00 09/22/24 16:00 09/22/24 16:00 09/22/24 16:00 09/20/24 21:24 Objective Labs 09/22/24 05:22 09/22/24 05:22 Labs: Laboratory Results - last 24 hr 09/22/24 05:22 WBC 5.4 RBC 3.15 L Hgb 9.8 L Hct 29.5 L MCV 94 MCH 31.1 MCHC 33.2 RDW Std Deviation 44.5 Plt Count 208 Neut % (Auto) 58 Lymph % (Auto) 31 Jerauld % (Auto) 7 Eos % (Auto) 3 Baso % (Auto) 0 Neut # (Auto) 3.1 Lymph # (Auto) 1.7 Jerauld # (Auto) 0.4 Eos # (Auto) 0.1 Baso # (Auto) 0.0 Immature Gran # (Auto) 0.01 H Absolute Nucleated RBC 0.00 Immature Gran % 0 Nucleated RBC % 0 Smear Path Review Sent to Pathologist Sodium 142 Potassium 4.2 Chloride 110 H Carbon Dioxide 24.9 Anion Gap 7 BUN 19 Creatinine 0.9 Estim Creat Clear Calc 50.1 L eGFR > 60 BUN/Creatinine Ratio 21 H Glucose 91 Calculated Osmolality 285 Calcium 7.8 L Corrected Calcium 8.6 Phosphorus 4.0 Magnesium 2.0 Total Bilirubin 0.2 L AST 14 ALT < 7 L Alkaline Phosphatase 80 Total Protein 4.7 L Albumin 3.0 L Globulin 1.7 L Albumin/Globulin Ratio 1.8 Quality Measures Quality Measures VTE prophylaxis Advance care planning discussed with:: patient Assessment & Plan Plan Plan 79 y/o F with PMHx significant for CVA without residual deficits, HTN, arthritis presented to ED from home with chief complaint confusion and slurred speech. The primary team and consulted cardiology for concern over low heart rate. Per patient chart, she appears to be bradycardic with heart rate in the range of 40s and 50s since 05/2021. CT head unremarkable, head and neck CTA showed no filling left vertebral artery, 50% narrowing basilar artery, 80% stenosis right posterior cerebral artery. Brain MRI negative for acute hemorrhage, no acute infarct, large old infarct in the left cerebellar hemisphere, chronic microvascular white matter change. Carotid Doppler study shows R ICA 10-30% stenosis and L ICA 0-10% stenosis. Stroke ruled out. On 09/22/2024 BP 124/54 heart, pulse 46, respirations 22, WBC 5.4, hemoglobin 9.8, BUN 19, creatinine 0.9. Problems: #Bradycardia, stable, asymptomatic #acute encephalopathy, resolving #UTI #Stroke rule out #LELA #Hypothyroidism #Hypertension EKG obtained on September 20, 2024 shows sinus bradycardia with first-degree AV block with occasional supraventricular premature complexes. QTc on EKG prolonged at 430. On echocardiogram ultrasound completed in early 2019 patient was noted to have aortic stenosis and regurgitation. Indeed, chronic aortic stenosis can lead to LVH, mitral insufficiency, LA enlargement, increasing the risk for atrial fibrillation. Patient is noted to be on metoprolol succinate p.o. 25 mg daily for a likely previous finding of atrial fibrillation, which is now resolved. Patient is 79 years old, and atrial fibrillation is a common finding in elderly patients above 70 (close to 30% of patients with similar demographics). Echo done at bedside showed normal EF 50-55%, normal RV and LV function and filling pressures. Another probable contributing factor to bradycardia is low thyroid hormone levels. TSH 0.83 and within normal limits. Free T4 low at 0.77 on labs from today. Blood pressure can vary from 100s to 140s systolic, however patient denies lightheadedness, dizziness, mental status changes. Hemoglobin 9.9 and is stable. A1c 6.2. HDL 131, cholesterol 183, triglycerides 75. ? We recommend monitoring the patient closely for symptoms secondary to bradycardia as delineated above. --We recommend having IVP 1mg atropine available to administer emergnetly if the patient should become acutely symptomatic with hypotension, altered mental status, develop signs of shock or ischemic chest discomfort, to be repeated every 3-5min for a maximum dose of 3mg, per ACLS guidelines. Treatment is indicated only if the pt is symptomatic. ? Consider titrating down metoprolol succinate p.o. 25 mg as tolerated, while maintaining rate and rhythm control. ?Patient has hyperlipidemia as well as prediabetes, which are risk factors for CAD. Recommend continuing with pravastatin 20 mg p.o. daily. ?Recommend keeping potassium greater than 4 and magnesium greater than 2. Thank you for cardiology consultation. We appreciate the opportunity to participate in this patient's care. Will continue to follow-up on this patient This case was discussed with my attending physician, Dr. Thompson, spaghetti machine operator. Tomeka Mina, DO PGY I
== END 2024-09-22 15:53 | disposition home or self-care (01) ==
LOC: SERX 23:15 → SERHOLD 09-21 06:52 → S2NX 09-22 07:36
PROVIDERS: Admitting Provider Student in an Organized Health Care Education/Training Program; Emergency Provider Emergency Medicine; Visit Provider Student in an Organized Health Care Education/Training Program
DX: G93.40 Encephalopathy, unspecified (principal); N39.0 Urinary tract infection, site not specified; I10 Essential (primary) hypertension; Z86.73 Personal history of transient ischemic attack (TIA), and cerebral infarction without residual deficits; R00.1 Bradycardia, unspecified; E03.9 Hypothyroidism, unspecified; N17.9 Acute kidney failure, unspecified; I44.0 Atrioventricular block, first degree; I66.21 Occlusion and stenosis of right posterior cerebral artery; E78.5 Hyperlipidemia, unspecified
CPT/HCPCS: 36415; 36600; 70450; 70496; 70498; 70544; 71045; 80053; 80061; 80307; 80320; 81001; 82248; 82803; 83036; 83605; 83735; 83880; 84100; 84145; 84439; 84443; 84484; 85025; 85610; 85652; 85730; 86140; 87040; 87077; 87086; 87186; 87400; 87811; 93005; 93880; 96361; 96365; 96366; 96372; 97162; 99285; A4649; G0378; J0696; J1644; J7030; Q9967; A9270; G0480

== ENCOUNTER → 2024-10-04 | Outpatient (CLI) | payer OTHER, SELFPAY ==
[2024-10-04 15:15] LABS: Collection Type, Urine Clean Catch
[2024-10-04 16:21] LABS: Bacteria,Urine Rare; Bilirubin,Urine Negative (Negative); Blood,Urine 2+ (Negative); Clarity,Urine Clear (Clear/Hazy); Color,Urine Yellow (Lt Yel-Yel); Glucose, Urine Negative (Negative); Ketones,Urine Negative (Negative); Leukocyte Esterase,Urine Positive (Negative); Nitrite,Urine Positive (Negative); PH,Urine 6.0 (5.0-7.0); Protein,Urine Negative (Neg - Trace); RBC,Urine 24 /hpf (0-3); Specific Gravity,Urine 1.019 (1.001-1.035); Squamous Epithelial Cell,Urine 1 /hpf (0-5); Urobilinogen,Urine Negative mg/dL (0.0-1.0); WBC,Urine 112 /hpf (0-5)
== END | disposition home or self-care (01) ==
LOC: SLDO 15:09
PROVIDERS: PCP Internal Medicine; Referring Provider Internal Medicine; Visit Provider Internal Medicine
DX: N39.0 Urinary tract infection, site not specified (principal)
CPT/HCPCS: 81001; 87077; 87086; 87186

== ENCOUNTER → 2024-10-11 | Outpatient (CLI) | payer OTHER, SELFPAY ==
[2024-10-11 09:25] LABS: Basophils # (Auto) 0.0 Thou/mm3 (0.0-0.2); Basophils % (Auto) 1 % (0-2.5); Eosinophils # (Auto) 0.1 Thou/mm3 (0.0-0.5); Eosinophils % (Auto) 2 % (0-10); Hematocrit 36.4 % (36.0-46.0); Hemoglobin 12.0 g/dL (12.0-16.0); Immature Granulocytes Auto 0.01 Thou/mm3 (0.00-0.00); Lymphocytes # (Auto) 2.2 Thou/mm3 (1.0-4.8); Lymphocytes % (Auto) 36 % (10-50); Mean Corpuscular HGB Conc 33.0 g/dl (31.0-37.0); Mean Corpuscular Hemoglobin 31.0 pg (25.0-35.0); Mean Corpuscular Volume 94 fL (80-100); Monocytes # (Auto) 0.5 Thou/mm3 (0.0-0.8); Monocytes % (Auto) 8 % (0-12); Neutrophils # (Auto) 3.2 Thou/mm3 (1.8-7.7); Neutrophils % (Auto) 53 % (37-80); Nucleated Red Blood Cell # 0.00 Thou/mm3 (0.00-0.00); Nucleated Red Blood Cell % 0 /100 WBC (0); Platelet Count 230 Thou/mm3 (140-440); RDW Standard Deviation 45.9 fL (36.4-46.3); Red Blood Count 3.87 Miln/mm3 (4.00-5.20); White Blood Count 6.0 Thou/mm3 (3.6-11.0)
[2024-10-11 09:49] LABS: Alanine Aminotransferase 10 U/L (10-49); Albumin, Serum 4.1 gm/dL (3.4-4.8); Albumin/Globulin Ratio 1.9 (1.2-2.2); Alkaline Phosphatase 88 U/L (46-116); Anion Gap 10 (7-16); Aspartate Amino Transferase 22 U/L (0-34); BUN/Creatinine Ratio 15 Ratio (12-20); Bilirubin,Total 0.4 mg/dL (0.3-1.2); Blood Urea Nitrogen 16 mg/dL (9-23); Calcium 9.5 mg/dL (8.3-10.6); Calcium (Corrected) 9.5 mg/dL (8.5-10.1); Carbon Dioxide 25.4 mMol/L (20.0-31.0); Cardiac Risk Estimate 3.7 RATIO (3.7-5.6); Chloride 106 mMol/L (98-107); Cholesterol 191 mg/dL (132-200); Creatinine (Component) 1.1 mg/dL (0.6-1.3); Globulin 2.2 gm/dL (2.3-3.5); Glucose 100 mg/dL (74-106); HDL Cholesterol 51 mg/dL (40-60); LDL Cholesterol,Calculated 119 mg/dL (0-130); Osmolality,Calculated 282 (275-295); Potassium 4.4 mMol/L (3.4-5.1); Sodium 141 mMol/L (136-145); Total Protein 6.3 gm/dL (5.7-8.2); Triglycerides 104 mg/dL (30-150); eGFR 51 See Note
[2024-10-11 10:10] LABS: Glucose Estimated Average 117 mg/dL (80-131); Hemoglobin A1C 5.7 % Hgb (4.8-6.0)
== END | disposition home or self-care (01) ==
LOC: COPL 08:12
PROVIDERS: PCP Internal Medicine; Referring Provider Internal Medicine; Visit Provider Internal Medicine
DX: I10 Essential (primary) hypertension (principal); E78.5 Hyperlipidemia, unspecified
CPT/HCPCS: 36415; 80053; 80061; 83036; 85025

== ENCOUNTER → 2024-10-27 | Outpatient (CLI) | payer OTHER, SELFPAY ==
[2024-10-27 14:17] LABS: Collection Type, Urine Clean Catch
[2024-10-27 17:05] LABS: Bilirubin,Urine Negative (Negative); Blood,Urine Negative (Negative); Clarity,Urine Clear (Clear/Hazy); Color,Urine Yellow (Lt Yel-Yel); Glucose, Urine Negative (Negative); Hyaline Casts,Urine < 1 /hpf (0-1); Ketones,Urine Negative (Negative); Leukocyte Esterase,Urine Negative (Negative); Nitrite,Urine Negative (Negative); PH,Urine 6.0 (5.0-7.0); Protein,Urine Negative (Neg - Trace); RBC,Urine 8 /hpf (0-3); Specific Gravity,Urine 1.019 (1.001-1.035); Squamous Epithelial Cell,Urine 5 /hpf (0-5); Urobilinogen,Urine Negative mg/dL (0.0-1.0); WBC,Urine 1 /hpf (0-5)
== END | disposition home or self-care (01) ==
LOC: SLDO 14:00
PROVIDERS: PCP Nurse Practitioner Family; Referring Provider Nurse Practitioner Family; Visit Provider Nurse Practitioner Family
DX: N39.0 Urinary tract infection, site not specified (principal)
CPT/HCPCS: 81001; 87086

== ENCOUNTER → 2024-11-08 | Outpatient (CLI) | payer OTHER, SELFPAY | END | disposition home or self-care (01) | LOC: SLDO 14:59 | PROVIDERS: PCP Student in an Organized Health Care Education/Training Program; Referring Provider Student in an Organized Health Care Education/Training Program; Visit Provider Student in an Organized Health Care Education/Training Program | DX: N39.0 Urinary tract infection, site not specified (principal) | CPT/HCPCS: 87086 ==

== ENCOUNTER → 2024-11-17 | Outpatient (CLI) | payer OTHER, SELFPAY ==
[2024-11-17 11:04] LABS: Alanine Aminotransferase 7 U/L (10-49); Albumin, Serum 4.0 gm/dL (3.4-4.8); Albumin/Globulin Ratio 1.8 (1.2-2.2); Alkaline Phosphatase 81 U/L (46-116); Anion Gap 9 (7-16); Aspartate Amino Transferase 19 U/L (0-34); BUN/Creatinine Ratio 15 Ratio (12-20); Bilirubin,Total 0.5 mg/dL (0.3-1.2); Blood Urea Nitrogen 15 mg/dL (9-23); Calcium 9.2 mg/dL (8.3-10.6); Calcium (Corrected) 9.2 mg/dL (8.5-10.1); Carbon Dioxide 28.5 mMol/L (20.0-31.0); Chloride 107 mMol/L (98-107); Creatinine (Component) 1.0 mg/dL (0.6-1.3); Globulin 2.2 gm/dL (2.3-3.5); Glucose 100 mg/dL (74-106); Osmolality,Calculated 287 (275-295); Potassium 4.5 mMol/L (3.4-5.1); Sodium 144 mMol/L (136-145); Total Protein 6.2 gm/dL (5.7-8.2); eGFR 57 See Note
== END | disposition home or self-care (01) ==
LOC: COPL 09:56
PROVIDERS: PCP Internal Medicine; Referring Provider Nurse Practitioner Family; Visit Provider Nurse Practitioner Family
DX: N17.9 Acute kidney failure, unspecified (principal)
CPT/HCPCS: 36415; 80053